=== PATIENT | male | born 1965 | race Caucasian/White ===

== ENCOUNTER 2017-11-06 16:35 | Inpatient (IN) | payer OTHER ==
[~2017-11-06] VITALS: Ht 172.7 cm; Wt 67.0 kg
[2017-11-06] MEDS ORDERED: LIDOCAINE HCL 1% PF 30 ML VIAL ONE ×2 (16:38→16:42)
[2017-11-06] MEDS ORDERED: ONDANSETRON HCL 4 MG/2 ML VIAL ONE (16:39)
[2017-11-06] MEDS ORDERED: HYDROmorphone HCL PF 2 MG/ML VIAL ONE (16:39)
[2017-11-06] MEDS ORDERED: MIDAZOLAM HCL 5 MG/ML VIAL (1 ML) ONE (16:41)
[2017-11-06 17:03] LABS: AUTOMATED NEUTROPHIL # 6.4 TH/MM3 (1.8-7.7); BASOPHIL # 0.1 TH/MM3 (0-0.2); BASOPHIL % 1.3 % (0.0-2.0); EOSINOPHIL # 0.3 TH/MM3 (0-0.4); EOSINOPHIL % 2.9 % (0.0-4.0); HEMATOCRIT 35.8 % (39.0-51.0); HEMOGLOBIN 12.4 GM/DL (13.0-17.0); LYMPHOCYTE # 2.8 TH/MM3 (1.0-4.8); MEAN CELL VOLUME 99.3 FL (80.0-100.0); MEAN CORPUSCULAR HEMOGLOBIN 34.5 PG (27.0-34.0); MEAN CORPUSCULAR HGB CONC 34.8 % (32.0-36.0); MONO % 7.7 % (0.0-8.0); MONOCYTE # 0.8 TH/MM3 (0-0.9); NEUT % 61.1 % (16.0-70.0); PLATELET COUNT 286 TH/MM3 (150-450); RED CELL DISTRIBUTION WIDTH 13.1 % (11.6-17.2); WHITE BLOOD COUNT 10.5 TH/MM3 (4.0-11.0)
[2017-11-06] MEDS ORDERED: DIPHTH/TETANUS/ACEL PERTUSSIS (BOOSTER) 0.5 ML VIAL/PFS IM ONE (17:04)
[2017-11-06] MEDS ORDERED: IOHEXOL 350 MG/ML 10 ML VIAL (for RAD DIAG) IVCONTRAST ONE (17:12)
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
[2017-11-06 17:26] LABS: INTERNATIONAL NORMALIZED RATIO 1.1 RATIO; PROTHROMBIN TIME - PATIENT 10.7 SEC (9.8-11.6)
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
--- NOTE | 2017-11-06 17:40 | RADRPT ---
EXAM DATE/TIME: 11/06/2017 16:27 [facility] COMPARISON: No previous studies available for comparison. INDICATIONS : Trauma alert, post left side chest tube. MEDICAL HISTORY : Unobtainable. SURGICAL HISTORY : Unobtainable. ENCOUNTER: Initial ACUITY: 1 day PAIN SCORE: Non-responsive. LOCATION: Bilateral chest FINDINGS: Single recheck demonstrates a left-sided chest tube. There is moderate subcutaneous emphysema. There is parenchymal contusion within the left lung. There are fractures evident involving multiple left-sided ribs. The chest tube is somewhat medial placement. CONCLUSION: 1. There is now achest tube in the left chest. There is parenchymal contusion in the left lung and temple bcutaneous emphysema along the left chest wall 2. Multiple left-sided rib fractures identified. Thang Victoria MD on November 06, 2017 at 17:36 Board Certified Radiologist. This report was verified electronically.
[2017-11-06 17:48] VITALS: O2SAT 96
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
[2017-11-06 18:00] VITALS: PULSE 72
[2017-11-06] MEDS ORDERED: MORPHINE SULFATE 30 MG/30 ML PCA IV SCH (18:15)
[2017-11-06] MEDS ORDERED: HYDROmorphone HCL PF 2 MG/ML VIAL IV PUSH ONE (18:15)
[2017-11-06] MEDS ORDERED: SODIUM CHLORIDE 0.9% FLUSH 10 ML FLUSH IV FLUSH PRN (18:15)
[2017-11-06] MEDS ORDERED: NALOXONE HCL 0.4 MG/ML AMP IV PUSH PRN ×2 (18:15)
[2017-11-06] MEDS ORDERED: Post-op Orders (for Pharmacy) XX ONE (18:15)
[2017-11-06] MEDS: SODIUM CHLOR 0.9% 1000 ML INJ 1,000 ML IV SCH (18:15)
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
--- NOTE | 2017-11-06 19:45 | PD.CONS ---
[facility] Service Critical Care Medicine Consult Requested By Primary Care Physician Unknown History of Present Illness 53-year-old male patient presents as a trauma alert. The patient he had been unloading a truck and 200 pounds of wood fell on him. In the emergency department he was complaining of severe chest pain on the left side, with diminished breath sounds in the left. He had GCS of 15. He started getting short of breath and blood pressure started to drop in the ambulance. The needle decompression was done on the left side with improvement in symptoms by ambulance crew. The chest tube was then placed for hemopneumothorax by trauma surgeon at the trauma bay. Review of Systems Constitutional: COMPLAINS OF: Diaphoretic episodes, DENIES: Fatigue, Fever, Weight gain, Weight loss, Chills, Dizziness, Change in appetite, Night Sweats Endocrine: DENIES: Heat/cold intolerance, Polydipsia, Polyuria, Polyphagia Eyes: DENIES: Blurred vision, Diplopia, Eye inflammation, Eye pain, Vision loss , Photosensitivity, Double Vision Ears, nose, mouth, throat: DENIES: Tinnitus, Hearing loss, Vertigo, Nasal discharge, Oral lesions, Throat pain, Hoarseness, Ear Pain, Running Nose, Epistaxis, Sinus Pain, Toothache, Odynophagia Respiratory: COMPLAINS OF: Shortness of breath, DENIES: Apneas, Cough, Snoring , Wheezing, Hemoptysis, Sputum production Cardiovascular: COMPLAINS OF: Chest pain, Dyspnea on Exertion, DENIES: Palpitations, Syncope, PND, Lower Extremity Edema, Orthopnea, Claudication Gastrointestinal: DENIES: Abdominal pain, Black stools, Bloody stools, Constipation, Diarrhea, Nausea, Vomiting, Difficulty Swallowing, Anorexia Genitourinary: DENIES: Sexual dysfunction, Urinary frequency, Urinary incontinence, Urgency, Hematuria, Dysuria, Nocturia, Penile Discharge, Testicular Pain, Testicular Swelling Musculoskeletal: DENIES: Joint pain, Muscle aches, Stiffness, Joint Swelling, Back pain, Neck pain Integumentary: DENIES: Abnormal pigmentation, Nail changes, Pruritus, Rash Hematologic/lymphatic: DENIES: Bruising, Lymphadenopathy Immunologic/allergic: DENIES: Eczema, Urticaria Neurologic: DENIES: Abnormal gait, Headache, Localized weakness, Paresthesias, Seizures, Speech Problems, Tremor, Poor Balance Psychiatric: DENIES: Anxiety, Confusion, Mood changes, Depression, Hallucinations, Agitation, Suicidal Ideation, Homicidal Ideation, Delusions Past Family Social History Allergies: Coded Allergies: No Known Allergies (Verified Allergy, Unknown, 11/06/17) Past Medical History Hypertension Past Surgical History No significant related past surgical history Reported Medications None available Active Ordered Medications Current Medications Medications (Trade) Dose Ordered Sig/Marium Route PRN Reason Start Time Stop Time Status Last Admin Dose Admin Sodium Chloride 1,000 ml @ 100 mls/hr Q10H IV 11/06/17 18:15 11/06/17 18:15 Sodium Chloride (NS Flush) 2 ml UNSCH PRN IV FLUSH FLUSH AFTER USING IV ACCESS 11/06/17 18:15 Sodium Chloride (NS Flush) 2 ml BID IV FLUSH 11/06/17 21:00 Ondansetron HCl (Zofran Inj) 4 mg Q6H PRN IV PUSH NAUSEA OR VOMITING 11/06/17 18:15 Famotidine (Pepcid) 20 mg BID PO 11/06/17 21:00 Docusate Sodium (Colace) 100 mg BID PO 11/06/17 21:00 Naloxone HCl (Narcan Inj) 0.4 mg UNSCH PRN IV PUSH SEE LABEL COMMENTS 11/06/17 18:15 Naloxone HCl (Narcan Inj) 0.4 mg UNSCH PRN IV PUSH RESPIRATORY RATE LESS THAN 10 11/06/17 18:15 Morphine Sulfate (Morphine 1 Mg/ ml HOTBED LEVER OPERATOR) 30 mg UNSCH IV 11/06/17 18:15 HOTBED LEVER OPERATOR Dosage Infused (Pha) 1 Q8HR .XX 11/06/17 22:00 Ketorolac Tromethamine (Toradol Inj) 15 mg Q6HR IV PUSH 11/06/17 20:00 Nicotine (Habitrol 14 Mg Patch.24 Hr) 1 patch DAILY T-DERMAL 11/06/17 20:00 Miscellaneous Information 1 DAILY T-DERMAL 11/07/17 09:00 Family History No family history significant of cancer Social History Denies alcohol or illicit drug abuse Physical Exam Vital Signs Vital Signs Date Time Temp Pulse Resp B/P (MAP) Pulse Ox O2 Delivery O2 Flow Rate FiO2 11/06/17 18:54 28 11/06/17 18:00 72 11/06/17 17:48 96 Nasal Cannula 3.00 Physical Exam GENERAL: Well-developed middle-age male patient currently and moderate distress , in mild respiratory distress. Decompression needle in place. Awake and alert. In backboard and c-collar. SKIN: Focused skin assessment warm/dry. HEAD: Atraumatic. Normocephalic. EYES: Pupils equal and round. No scleral icterus. No injection or drainage. ENT: No nasal bleeding or discharge. Mucous membranes pink and moist. NECK: Trachea midline. No JVD. C-collar in place. CARDIOVASCULAR: Regular rate and rhythm. No murmur appreciated. RESPIRATORY: Mild accessory muscle use. Bilateral coarse. breath sounds left chest wall needle in place.. Breath sounds equal bilaterally. GASTROINTESTINAL: Abdomen soft, non-tender, nondistended. Hepatic and splenic margins not palpable. MUSCULOSKELETAL: No obvious deformities. No clubbing. No cyanosis. No edema. NEUROLOGICAL: Awake and alert. No obvious cranial nerve deficits. Motor grossly within normal limits. Normal speech. Laboratory Laboratory Tests Test 11/06/17 16:40 White Blood Count 10.5 Red Blood Count 3.60 Hemoglobin 12.4 Bedside Hemoglobin 11.9 Hematocrit 35.8 Bedside Hematocrit 35.0 Mean Corpuscular Volume 99.3 Mean Corpuscular Hemoglobin 34.5 Mean Corpuscular Hemoglobin Concent 34.8 Red Cell Distribution Width 13.1 Platelet Count 286 Mean Platelet Volume 8.0 Neutrophils (%) (Auto) 61.1 Lymphocytes (%) (Auto) 27.0 Monocytes (%) (Auto) 7.7 Eosinophils (%) (Auto) 2.9 Basophils (%) (Auto) 1.3 Neutrophils # (Auto) 6.4 Lymphocytes # (Auto) 2.8 Monocytes # (Auto) 0.8 Eosinophils # (Auto) 0.3 Basophils # (Auto) 0.1 CBC Comment DIFF FINAL Differential Comment Prothrombin Time 10.7 Prothromb Time International Ratio 1.1 Activated Partial Thromboplast Time 21.2 Bedside Sodium 142 Bedside Potassium 3.3 Bedside Chloride 103 Bedside Blood Urea Nitrogen 17 Bedside Creatinine 1.2 Bedside Glucose 124 Result Diagram: 11/06/17 1640 Imaging Last 24 hours Impressions Pelvis X-Ray 11/06/17 1636 Signed Impressions: Service Date/Time: October 16:27 - CONCLUSION: 1. No definite fracture identified. The exam is somewhat limited as the upper pelvis is not visualized. Thang Victoria MD Head CT 11/06/17 1636 Signed Impressions: Service Date/Time: October 16:57 - CONCLUSION: 1. No acute intracranial abnormality is identified. Thang Victoria MD Chest X-Ray 11/06/17 1636 Signed Impressions: Service Date/Time: October 16:27 - CONCLUSION: 1. There are multiple left-sided rib fractures with pulmonary contusion. There is a small amount of subcutaneous emphysema. CT of the thorax would be of benefit for more definitive assessment. Thang Victoria MD Chest CT 11/06/17 1636 Signed Impressions: Service Date/Time: October 17:05 - CONCLUSION: 1. Numerous segmental lower left rib fractures with lung contusions and small left hemothorax. Dependent consolidation in both lungs. Small left pneumothorax with left chest tube. 2. Negative for traumatic aortic injury. Omar Douglas MD Cervical Spine CT 11/06/171635 Signed Impressions: Service Date/Time: October 16:57 - CONCLUSION: 1. Moderate degenerative change. No acute findings. Omar Douglas MD Abdomen/Pelvis CT 11/06/17 163 Signed Impressions: Service Date/Time: October 17:05 - CONCLUSION: 1. Numerous lower left rib fractures with pneumothorax, lung contusion, left hemothorax and dependent consolidation in the lungs. No acute traumatic injury identified within the abdomen and pelvis. Omar Douglas MD Chest X-Ray 11/06/17 0000 Signed Impressions: Service Date/Time: October 16:27 - CONCLUSION: 1. There is now achest tube in the left chest. There is parenchymal contusion in the left lung and subcutaneous emphysema along the left chest wall 2. Multiple left- sided rib fractures identified. Thang Victoria MD Septic Shock Reassessment Septic shock perfusion: reassessment completed Assessment and Plan Assessment and Plan Hemopneumothorax - Status post chest tube placement - Management per trauma surgeon - Monitor H&H Multiple rib fractures - Pain control - Incentive spirometer - Supportive care - Chest PT as tolerated Pulmonary contusion - Chest PT as tolerated - O2 via nasal cannula to keep sats above 92 DVT GI prophylaxis - Teds SCDs - Pharmacological DVT prophylaxis per trauma surgeon - Pepcid Critical Care: The total critical care time was 35 minutes. Time to perform other separately billable procedures was not included in the critical care time. Bear Serrano MD Nov 06, 2017 7:45 pm
[2017-11-06 20:00] VITALS: BP 125/72; PULSE 75; RESP 22; TEMP 98.5; O2SAT 97
[2017-11-06] MEDS ORDERED: KETOROLAC TROMETHAMINE 30 MG/ML (IVP) VIAL IV PUSH SCH (20:00)
[2017-11-06] MEDS: FAMOTIDINE 20 MG TAB PO SCH (21:02)
[2017-11-06] MEDS: SODIUM CHLORIDE 0.9% FLUSH 10 ML FLUSH IV FLUSH SCH (21:02)
[2017-11-06] MEDS: NICOTINE 14 MG/24 HR PATCH T-DERMAL SCH (21:02)
[2017-11-06] MEDS: DOCUSATE SODIUM 100 MG CAP PO SCH (21:02)
[2017-11-06 22:00] VITALS: PULSE 72
[2017-11-06 22:36] VITALS: O2SAT 100
[2017-11-06] MEDS: PCA - TOTAL MG MORPHINE DELIVERED PER SHIFT SCH (22:50)
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
[2017-11-06] MEDS ORDERED: METHOCARBAMOL 500 MG TAB PO PRN (23:00)
[2017-11-07] VITALS (18 sets, daily range): BP systolic 79–153; BP diastolic 46–88; PULSE 66–92; RESP 5–24; TEMP 97.7–99.1; O2SAT 95–100
[2017-11-07 01:09] LABS: HEMATOCRIT 32.4 % (39.0-51.0); HEMOGLOBIN 11.3 GM/DL (13.0-17.0)
[2017-11-07] MEDS: ONDANSETRON HCL 4 MG/2 ML VIAL IV PUSH PRN (01:35)
[2017-11-07 02:45] LABS: HEMATOCRIT 26.7 % (39.0-51.0); HEMOGLOBIN 9.3 GM/DL (13.0-17.0)
[2017-11-07] MEDS ORDERED: SODIUM CHLOR 0.9% 1000 ML INJ 1,000 ML IV SCH ×2 (02:45→11:05)
--- NOTE | 2017-11-07 03:26 | HHI.CCPN ---
Subjective Brief History Patient transferred to our institution as priority 2 trauma alert after a piece of wood fell on him while he was unloading a truck. Patient sustained massive injuries to the left chest He was resuscitated according trauma principles Final injuries Left hemopneumothorax Serial left rib fractures 5, 6, 7, 8, 9, 10 Respiratory failure Patient now being admitted to ICU for further care Left chest tube drainage decreased and no air leak is noted 24 Hour Review/Hospital Course 11/07/2017 Initially upon the admission patient was hemodynamically stable it was called around 2 AM when patient dropped systolic blood pressure to about 70 mmHg at which time about a liter of old blood port out of the chest tube as patient was being turned. Patient was immediately resuscitated with fluids and initially 1 unit of blood was ordered to be followed with a second Hemoglobin comes back around 9 g/dL however patient does appear somewhat pale to me and I believe he is slowly continuously bleeding into the left chest Patient's rib fractures of severe and it would not be uncommon for patient required thoracotomy and clean out of the chest On auscultation patient has decreased breath sounds on the left side consistent with a probably retained fresh pneumothorax and also contusion of the lung from the initial injury Repeat chest x-ray reveals partial opacification of the left chest Depending on how patient does in next few hours we will decide whether patient needs thoracotomy today or he can be safely watched and managed conservatively 11/07/2017 continuous At 7 AM it is noted that patient keeps pulling out about 150-200 cc/h of blood from the chest tube without stopping. He was transfused 2 units PRBC at hemoglobin of 9 with a repeat hemoglobin being 10 barely moved Decision is made now to take the patient to the operating room for continuous bleeding Patient underwent left thoracotomy and partial resection of the left lower lobe , resection of the ribs and drainage of hemothorax with control of bleeding Patient is now back in the ICU intubated ventilated Objective Vital Signs Date Time Temp Pulse Resp B/P (MAP) Pulse Ox O2 Delivery O2 Flow Rate FiO2 11/07/17 02:59 98.2 88 24 95/51 95 11/06/17 22:36 Nasal Cannula 4.00 Result Diagram: 11/07/17 0232 Imaging Last 24 hours Impressions Pelvis X-Ray 11/06/17 0856 Signed Impressions: Service Date/Time: October 16:27 - CONCLUSION: 1. No definite fracture identified. The exam is somewhat limited as the upper pelvis is not visualized. Thang Victoria MD Head CT 11/06/171635 Signed Impressions: Service Date/Time: October 16:57 - CONCLUSION: 1. No acute intracranial abnormality is identified. Thang Victoria MD Chest X-Ray 11/06/171635 Signed Impressions: Service Date/Time: October 16:27 - CONCLUSION: 1. There are multiple left-sided rib fractures with pulmonary contusion. There is a small amount of subcutaneous emphysema. CT of the thorax would be of benefit for more definitive assessment. Thang Victoria MD Chest CT 11/06/171635 Signed Impressions: Service Date/Time: October 17:05 - CONCLUSION: 1. Numerous segmental lower left rib fractures with lung contusions and small left hemothorax. Dependent consolidation in both lungs. Small left pneumothorax with left chest tube. 2. Negative for traumatic aortic injury. Omar Douglas MD Cervical Spine CT 11/06/171635 Signed Impressions: Service Date/Time: October 16:57 - CONCLUSION: 1. Moderate degenerative change. No acute findings. Omar Douglas MD Abdomen/Pelvis CT 11/06/171635 Signed Impressions: Service Date/Time: October 17:05 - CONCLUSION: 1. Numerous lower left rib fractures with pneumothorax, lung contusion, left hemothorax and dependent consolidation in the lungs. No acute traumatic injury identified within the abdomen and pelvis. 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 Patient sedated on propofol and fentanyl Hemodynamic/Cardiac Hemodynamically now stable Pulmonary/Respiratory Bilateral breath sounds left chest tubes anterior apical and posterior basal with drainage now serosanguineous On assist control ventilation tidal volume 550 cc, 5 PEEP and 50% FiO2 Bilateral pulmonary expansion and chest tubes in place This line was very beat up and the ribs shredded part of the left lower lobe so this patient will get worse before he gets better as far as the pulmonary function is concerned In addition patient is a severe chest wall contusion and fracture of the ribs which had to be trimmed off This was not something that could be plated considering that parts of the ribs are basically pulverized Abdomen/GI Nutrition Abdomen is soft no signs of trauma there Renal/I&O Preserved renal function Assessment and Plan Attestation Critical care time 65 minutes Burton Pratt MD Nov 07, 2017 03:26
--- NOTE | 2017-11-07 03:41 | RADRPT ---
EXAM DATE/TIME: 11/07/2017 03:06 [facility] COMPARISON: CHEST SINGLE AP, November 06, 2017, 16:27. INDICATIONS : Follow up trauma alert, pneumothorax. MEDICAL HISTORY : Unobtainable. SURGICAL HISTORY : Unobtainable. ENCOUNTER: Subsequent ACUITY: 2 days PAIN SCORE: 10/10 LOCATION: Left chest FINDINGS: A single view of the chest demonstrates worsening opacification of the left hemithorax. Left-sided th oracostomy tube is again identified. Probable small right-sided effusion with some blunting of the co stophrenic angles. Degenerative spurring of the dorsal spine. Stable deep tissue emphysematous change s about the left hemithorax. CONCLUSION: Worsening airspace opacification of the left hemithorax. Probable developing small right- sided e ffusion. Tylor Macias MD on November 07, 2017 at 3:38 Board Certified Radiologist. This report was verified electronically.
[2017-11-07 05:09] LABS: AUTOMATED NEUTROPHIL # 15.1 TH/MM3 (1.8-7.7); BASOPHIL # 0.1 TH/MM3 (0-0.2); BASOPHIL % 0.3 % (0.0-2.0); EOSINOPHIL % 0.2 % (0.0-4.0); HEMATOCRIT 31.7 % (39.0-51.0); HEMOGLOBIN 10.8 GM/DL (13.0-17.0); LYMPH % 6.2 % (9.0-44.0); LYMPHOCYTE # 1.1 TH/MM3 (1.0-4.8); MEAN CELL VOLUME 94.1 FL (80.0-100.0); MEAN CORPUSCULAR HEMOGLOBIN 32.1 PG (27.0-34.0); MEAN CORPUSCULAR HGB CONC 34.1 % (32.0-36.0); MEAN PLATELET VOLUME 8.3 FL (7.0-11.0); MONO % 7.7 % (0.0-8.0); MONOCYTE # 1.4 TH/MM3 (0-0.9); NEUT % 85.6 % (16.0-70.0); PLATELET COUNT 166 TH/MM3 (150-450); RED BLOOD COUNT 3.37 MIL/MM3 (4.50-5.90); RED CELL DISTRIBUTION WIDTH 17.3 % (11.6-17.2); WHITE BLOOD COUNT 17.6 TH/MM3 (4.0-11.0)
[2017-11-07 05:39] LABS: BICARBONATE 24.4 MEQ/L (21.0-32.0); CALCIUM 7.6 MG/DL (8.5-10.1); CREATININE 0.83 MG/DL (0.60-1.30)
[2017-11-07] MEDS: KETOROLAC TROMETHAMINE 30 MG/ML (IVP) VIAL IV PUSH SCH ×4 (06:14→23:32)
[2017-11-07] MEDS: PCA - TOTAL MG MORPHINE DELIVERED PER SHIFT SCH (06:45)
[2017-11-07] MEDS ORDERED: BUPIVACAINE HCL PF 0.25% 30 ML VIAL ONE (07:32)
[2017-11-07] MEDS ORDERED: GENTAMICIN SULFATE 80 MG/2 ML VIAL ONE (07:32)
[2017-11-07] MEDS ORDERED: VANCOMYCIN HCL 1000 MG VIAL ONE (07:33)
[2017-11-07] MEDS: SODIUM CHLOR 0.9% 1000 ML INJ 1,000 ML IV SCH ×3 (07:35→23:07)
[2017-11-07] MEDS ORDERED: HEPARIN SODIUM - SQ 10,000 UNITS/ML VIAL ONE (07:38)
[2017-11-07 07:52] LABS: INTERNATIONAL NORMALIZED RATIO 1.3 RATIO; PROTHROMBIN TIME - PATIENT 12.7 SEC (9.8-11.6)
[2017-11-07] MEDS ORDERED: ceFAZolin 2 GM PREMIX 50 ML ONE (08:43)
[2017-11-07] MEDS: SODIUM CHLORIDE 0.9% FLUSH 10 ML FLUSH IV FLUSH SCH ×3 (08:57→20:31)
[2017-11-07] MEDS: FAMOTIDINE 20 MG TAB PO SCH ×2 (09:00→20:31)
[2017-11-07] MEDS: DOCUSATE SODIUM 100 MG CAP PO SCH ×2 (09:00→20:31)
[2017-11-07] MEDS: REMOVE OLD PATCH T-DERMAL SCH (09:00)
[2017-11-07] MEDS ORDERED: INFLUENZA VIRUS VACCINE (QUADRIVALENT) 0.5 ML SYR IM ONE (10:00)
[2017-11-07] MEDS ORDERED: DO NOT ADM ANY ANTICOAGULANT DRUGS PRN (10:38)
[2017-11-07] MEDS ORDERED: PROPOFOL 500 MG/50 ML INJ 50 ML ONE (10:49)
[2017-11-07] MEDS ORDERED: MORPHINE SULFATE 4 MG/ML INJ ONE (11:06)
[2017-11-07] MEDS ORDERED: NALOXONE HCL 0.4 MG/ML AMP IV PUSH PRN (11:15)
[2017-11-07] MEDS ORDERED: SODIUM CHLORIDE 0.9% FLUSH 10 ML FLUSH IV FLUSH PRN (11:15)
[2017-11-07] MEDS ORDERED: PROPOFOL 1000 MG/100 ML INJ 100 ML IV PRN (11:15)
[2017-11-07] MEDS ORDERED: Post-op Orders (for Pharmacy) XX ONE (11:15)
[2017-11-07] MEDS ORDERED: fentaNYL DRIP 250 ML IV PRN (11:15)
[2017-11-07] MEDS: NICOTINE 14 MG/24 HR PATCH T-DERMAL SCH (11:58)
[2017-11-07] MEDS ORDERED: DEXAMETHASONE SOD PHOS 4 MG/ML VIAL IV ONE (12:00)
[2017-11-07] MEDS ORDERED: NORMOSOL R INJ 1,000 ML IV ONE (12:00)
[2017-11-07] MEDS ORDERED: PROPOFOL 200 MG/20 ML AMP IV ONE (12:00)
[2017-11-07] MEDS ORDERED: ROCURONIUM INJ 50 MG/5 ML SYRINGE IV PUSH ONE (12:00)
[2017-11-07] MEDS ORDERED: PHENYLEPH/NS 1000 MCG/10 ML SYR IV ONE (12:00)
[2017-11-07] MEDS ORDERED: NEOSTIGMINE 5 MG/5 ML SYRINGE IV PUSH ONE (12:00)
[2017-11-07] MEDS ORDERED: LIDOCAINE HCL 1% PF 5 ML SYRINGE OTHER ONE (12:00)
[2017-11-07] MEDS ORDERED: ONDANSETRON HCL 4 MG/2 ML VIAL IV ONE (12:00)
[2017-11-07] MEDS ORDERED: VECURONIUM BROMIDE 20 MG VIAL IV ONE (12:00)
[2017-11-07] MEDS ORDERED: GLYCOPYRROLATE 1 MG/5 ML SYRINGE IV PUSH ONE (12:00)
[2017-11-07] MEDS ORDERED: ePHEDrine/NS 25 MG/5 ML SYRINGE IV ONE (12:00)
[2017-11-07] MEDS ORDERED: STERILE WATER FOR INJECTION 20 ML VIAL IV ONE (12:00)
--- NOTE | 2017-11-07 12:14 | RADRPT ---
EXAM DATE/TIME: 11/07/2017 11:37 [facility] COMPARISON: CHEST SINGLE AP, November 07, 2017, 3:06. INDICATIONS : Post thoracotomy. MEDICAL HISTORY : Unobtainable. SURGICAL HISTORY : Unobtainable. ENCOUNTER: Subsequent ACUITY: 1 day PAIN SCORE: Non-responsive. LOCATION: Bilateral chest FINDINGS: Portable upright expiratory view of the chest demonstrates a normal-sized cardiac silhouette. Endotra cheal tube is present with distal tip approximately 4.4 cm from the ingris and NG tube courses beyond the GE junction. Multiple EKG lines overlie the patient. There are 2 large bore left chest tubes ove rlying the left hemithorax. There is improved aeration of the left lung with resolution of the pleura l based opacity. No pneumothorax is identified. There is left chest wall subcutaneous emphysema. Left chest wall skin jung are present. There is stable slight blunting of the right costophrenic sulcu s. CONCLUSION: 1. Resolution of the left pleural effusion with improved aeration of the left lung. 2 large bore left chest tubes are present and no pneumothorax is seen. 2. Stable displaced left rib fractures with left chest wall subcutaneous air. Jarred Torre MD on November 07, 2017 at 12:08 Board Certified Radiologist. This report was verified electronically.
[2017-11-07 12:24] LABS: HEMATOCRIT 31.4 % (39.0-51.0); HEMOGLOBIN 10.8 GM/DL (13.0-17.0)
--- NOTE | 2017-11-07 13:11 | HHI.CCPN ---
Subjective Remarks/Hospital Course 53-year-old male patient presents as a trauma alert. The patient he had been unloading a truck and 200 pounds of wood fell on him. In the emergency department he was complaining of severe chest pain on the left side, with diminished breath sounds in the left. He had GCS of 15. He started getting short of breath and blood pressure started to drop in the ambulance. The needle decompression was done on the left side with improvement in symptoms by ambulance crew. The chest tube was then placed for hemopneumothorax by trauma surgeon at the trauma bay. 11/07: Back from OR on mechanical ventilation. Hemodynamics acceptable following lung repair. Minimal drainage from chest tubes. CXR with tubes and lines in good psoition. Objective Vital Signs Date Time Temp Pulse Resp B/P (MAP) Pulse Ox O2 Delivery O2 Flow Rate FiO2 11/07/17 11:00 100 40 11/07/17 08:00 82 22 101/60 (74) 11/07/17 04:02 97.9 11/06/17 22:36 Nasal Cannula 4.00 Intake and Output 11/07/17 11/07/17 11/08/17 08:00 16:00 00:00 Intake Total 3665 ml 3400 ml Output Total 3000 ml 1400 ml Balance 665 ml 2000 ml Result Diagram: 11/07/17 1205 11/07/17 0426 Other Results Laboratory Tests Test 11/07/17 09:03 Blood Gas Puncture Site DRAWN IN OR Blood Gas Patient Temperature 98.6 Blood Gas HCO3 22 mmol/L (22-26) Blood Gas Base Excess -4.2 mmol/L (-2-2) Blood Gas Oxygen Saturation 95 % (90-100) Arterial Blood pH 7.24 (7.380-7.420) Arterial Blood Partial Pressure CO2 54 mmHg (38-42) Arterial Blood Partial Pressure O2 212 mmHg (61-120) Arterial Blood Oxygen Content 10.8 Vol % (12.0-20.0) Arterial Blood Carboxyhemoglobin 2.5 % (0-4) Arterial Blood Methemoglobin 1.4 % (0-2) Blood Gas Hemoglobin 7.6 G/DL (12.0-16.0) Oxygen Delivery Device VENTILATOR Blood Gas Ventilator Setting OR Blood Gas Inspired Oxygen 100 % Imaging Last 24 hours Impressions Pelvis X-Ray 11/06/17 3326 Signed Impressions: Service Date/Time: October 16:27 - CONCLUSION: 1. No definite fracture identified. The exam is somewhat limited as the upper pelvis is not visualized. Thang Victoria MD Head CT 11/06/17 163 Signed Impressions: Service Date/Time: October 16:57 - CONCLUSION: 1. No acute intracranial abnormality is identified. Thang Victoria MD Chest X-Ray 11/06/171635 Signed Impressions: Service Date/Time: October 16:27 - CONCLUSION: 1. There are multiple left-sided rib fractures with pulmonary contusion. There is a small amount of subcutaneous emphysema. CT of the thorax would be of benefit for more definitive assessment. Thang Victoria MD Chest CT 11/06/171635 Signed Impressions: Service Date/Time: October 17:05 - CONCLUSION: 1. Numerous segmental lower left rib fractures with lung contusions and small left hemothorax. Dependent consolidation in both lungs. Small left pneumothorax with left chest tube. 2. Negative for traumatic aortic injury. Omar Douglas MD Cervical Spine CT 11/06/176 Signed Impressions: Service Date/Time: October 16:57 - CONCLUSION: 1. Moderate degenerative change. No acute findings. Omar Douglas MD Abdomen/Pelvis CT 11/06/171635 Signed Impressions: Service Date/Time: October 17:05 - CONCLUSION: 1. Numerous lower left rib fractures with pneumothorax, lung contusion, left hemothorax and dependent consolidation in the lungs. No acute traumatic injury identified within the abdomen and pelvis. Omar Douglas MD Chest X-Ray 11/06/17 0000 Signed Impressions: Service Date/Time: October 16:27 - CONCLUSION: 1. There is now achest tube in the left chest. There is parenchymal contusion in the left lung and subcutaneous emphysema along the left chest wall 2. Multiple left- sided rib fractures identified. Thang Victoria MD Objective Remarks GENERAL: Well-developed middle-age male. Intubated, ventilated. SKIN: Focused skin assessment warm/dry. HEAD: Atraumatic. Normocephalic. EYES: Pupils equal and round. No scleral icterus. No injection or drainage. ENT: No nasal bleeding or discharge. Mucous membranes pink and moist. NECK: Trachea midline. Orally intubated. CARDIOVASCULAR: Regular rate and rhythm. No murmur appreciated. RESPIRATORY: Mild accessory muscle use. Bilateral coarse. breath sounds left chest wall needle in place. Breath sounds equal bilaterally. GASTROINTESTINAL: Abdomen soft, non-tender, nondistended. Quiet. MUSCULOSKELETAL: No obvious deformities. No clubbing. No cyanosis. No edema. NEUROLOGICAL: Moves 4 limbs. Opens eyes. On ventilator A/P Assessment and Plan Hemopneumothorax - Status post chest tube placement - Management per trauma surgeon - Monitor H&H - Left thoracotomy and partial lung resection 11/07 Multiple rib fractures - Pain control - Incentive spirometer after extubation - Supportive care - Chest PT as tolerated Pulmonary contusion - Chest PT as tolerated - PRVC mode DVT GI prophylaxis - Teds SCDs - Pharmacological DVT prophylaxis per trauma surgeon - Pepcid Overall impression: Patient is critically ill requiring emergency thoracotomy and lung resection for hemorrhage after receiving severe blunt chest trauma. Will keep peak airway pressures low, ventilate for at least 24 hours due to severe lung contusion. Critical care 43 mins Junior Quesada MD Nov 07, 2017 13:11
[2017-11-07] MEDS ORDERED: RASS Change Order XX ONE (13:45)
[2017-11-07] MEDS: PROPOFOL 1000 MG/100 ML INJ 100 ML IV PRN ×2 (13:50→20:31)
[2017-11-07] MEDS: fentaNYL DRIP 250 ML IV PRN (13:57)
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
[2017-11-07] MEDS: CHLORHEXIDINE 0.12% (ORAL KIT) 15 ML CUP MT SCH (20:30)
[2017-11-08] VITALS (15 sets, daily range): BP systolic 101–133; BP diastolic 47–69; PULSE 77–103; RESP 12–26; TEMP 98.4–98.7; O2SAT 93–100
[2017-11-08] MEDS: PROPOFOL 1000 MG/100 ML INJ 100 ML IV PRN (02:49)
--- NOTE | 2017-11-08 04:29 | RADRPT ---
EXAM DATE/TIME: 11/08/2017 03:33 [facility] COMPARISON: CHEST SINGLE AP, November 07, 2017, 11:37. INDICATIONS : Hemothorax. MEDICAL HISTORY : None. SURGICAL HISTORY : None. ENCOUNTER: Subsequent ACUITY: 3 days PAIN SCORE: 10/10 LOCATION: Left chest FINDINGS: A single view of the chest demonstrates persistent left-sided airspace disease and associated effusio n. Developing atelectasis in the right base. There are 2 left-sided thoracostomy tubes without pneumo thorax. Stable deep tissue emphysematous changes about the left hemithorax. Heart size is borderline. Endotracheal and nasogastric tubes are stable in position. Multiple left-sided rib fractures. CONCLUSION: 1. Stable position of life support tubes including 2 thoracostomy tubes on the left. No pneumothorax 2. Multiple left-sided rib fractures with persistent left airspace disease/effusion probably represen ting pulmonary parenchymal contusion with hemothorax. 3. Developing atelectatic changes medially in the right base. Tylor Macias MD on November 08, 2017 at 4:26 Board Certified Radiologist. This report was verified electronically.
[2017-11-08 04:57] LABS: AUTOMATED NEUTROPHIL # 9.9 TH/MM3 (1.8-7.7); BASOPHIL % 0.3 % (0.0-2.0); EOSINOPHIL % 0.2 % (0.0-4.0); HEMATOCRIT 28.2 % (39.0-51.0); HEMOGLOBIN 9.9 GM/DL (13.0-17.0); LYMPH % 9.4 % (9.0-44.0); LYMPHOCYTE # 1.2 TH/MM3 (1.0-4.8); MEAN CELL VOLUME 89.9 FL (80.0-100.0); MEAN CORPUSCULAR HEMOGLOBIN 31.6 PG (27.0-34.0); MEAN CORPUSCULAR HGB CONC 35.1 % (32.0-36.0); MONO % 9.9 % (0.0-8.0); MONOCYTE # 1.2 TH/MM3 (0-0.9); NEUT % 80.2 % (16.0-70.0); PLATELET COUNT 129 TH/MM3 (150-450); RED BLOOD COUNT 3.13 MIL/MM3 (4.50-5.90); RED CELL DISTRIBUTION WIDTH 18.4 % (11.6-17.2); WHITE BLOOD COUNT 12.4 TH/MM3 (4.0-11.0)
[2017-11-08] MEDS: KETOROLAC TROMETHAMINE 30 MG/ML (IVP) VIAL IV PUSH SCH ×4 (05:25→23:31)
[2017-11-08] MEDS: fentaNYL DRIP 250 ML IV PRN (05:25)
[2017-11-08 05:32] LABS: BICARBONATE 26.5 MEQ/L (21.0-32.0); CALCIUM 7.3 MG/DL (8.5-10.1); CREATININE 0.6 MG/DL (0.60-1.30)
[2017-11-08 06:05] LABS: CALCIUM-PROTEIN CORRECTED 8.6 MG/DL (8.5-10.1); TOTAL PROTEIN 4.8 GM/DL (6.4-8.2)
--- NOTE | 2017-11-08 08:04 | HHI.CCPN ---
Subjective Remarks/Hospital Course 53-year-old male patient presents as a trauma alert. The patient he had been unloading a truck and 200 pounds of wood fell on him. In the emergency department he was complaining of severe chest pain on the left side, with diminished breath sounds in the left. He had GCS of 15. He started getting short of breath and blood pressure started to drop in the ambulance. The needle decompression was done on the left side with improvement in symptoms by ambulance crew. The chest tube was then placed for hemopneumothorax by trauma surgeon at the trauma bay. 11/07: Back from OR on mechanical ventilation. Hemodynamics acceptable following lung repair. Minimal drainage from chest tubes. CXR with tubes and lines in good position. 11/08: Both lungs well expanded. Strong on SBTs 5/5 and gas exchange close to normal. Extubate now. Objective Vital Signs Date Time Temp Pulse Resp B/P (MAP) Pulse Ox O2 Delivery O2 Flow Rate FiO2 11/08/17 07:00 99 Mechanical Ventilator 40.00 11/08/17 06:00 77 11/08/17 04:15 40 11/08/17 04:00 98.7 19 101/57 (72) Intake and Output 11/08/17 11/08/17 11/09/17 08:00 16:00 00:00 Intake Total 377 ml Output Total 1450 ml Balance -1073 ml Result Diagram: 11/08/17 0438 11/08/17 0438 Other Results Laboratory Tests Test 11/07/17 09:03 11/08/17 05:03 Blood Gas Puncture Site DRAWN IN OR ART LINE Blood Gas Patient Temperature 98.6 98.6 Blood Gas HCO3 22 mmol/L (22-26) 24 mmol/L (22-26) Blood Gas Base Excess -4.2 mmol/L (-2-2) -1.3 mmol/L (-2-2) Blood Gas Oxygen Saturation 95 % (90-100) 96 % (90-100) Arterial Blood pH 7.24 (7.380-7.420) 7.33 (7.380-7.420) Arterial Blood Partial Pressure CO2 54 mmHg (38-42) 46 mmHg (38-42) Arterial Blood Partial Pressure O2 212 mmHg (61-120) 104 mmHg (61-120) Arterial Blood Oxygen Content 10.8 Vol % (12.0-20.0) 12.8 Vol % (12.0-20.0) Arterial Blood Carboxyhemoglobin 2.5 % (0-4) 1.3 % (0-4) Arterial Blood Methemoglobin 1.4 % (0-2) 0.9 % (0-2) Blood Gas Hemoglobin 7.6 G/DL (12.0-16.0) 9.3 G/DL (12.0-16.0) Oxygen Delivery Device VENTILATOR VENT Blood Gas Ventilator Setting OR SEE COMMENTS Blood Gas Inspired Oxygen 100 % 40 % Imaging Last 24 hours Impressions Pelvis X-Ray 11/06/171635 Signed Impressions: Service Date/Time: October 16:27 - CONCLUSION: 1. No definite fracture identified. The exam is somewhat limited as the upper pelvis is not visualized. Thang Victoria MD Head CT 11/06/171635 Signed Impressions: Service Date/Time: October 16:57 - CONCLUSION: 1. No acute intracranial abnormality is identified. Thang Victoria MD Chest X-Ray 11/06/171635 Signed Impressions: Service Date/Time: October 16:27 - CONCLUSION: 1. There are multiple left-sided rib fractures with pulmonary contusion. There is a small amount of subcutaneous emphysema. CT of the thorax would be of benefit for more definitive assessment. Thang Victoria MD Chest CT 11/06/171635 Signed Impressions: Service Date/Time: October 17:05 - CONCLUSION: 1. Numerous segmental lower left rib fractures with lung contusions and small left hemothorax. Dependent consolidation in both lungs. Small left pneumothorax with left chest tube. 2. Negative for traumatic aortic injury. Omar Douglas MD Cervical Spine CT 11/06/171635 Signed Impressions: Service Date/Time: October 16:57 - CONCLUSION: 1. Moderate degenerative change. No acute findings. Omar Douglas MD Abdomen/Pelvis CT 11/06/171635 Signed Impressions: Service Date/Time: October 17:05 - CONCLUSION: 1. Numerous lower left rib fractures with pneumothorax, lung contusion, left hemothorax and dependent consolidation in the lungs. No acute traumatic injury identified within the abdomen and pelvis. Omar Douglas MD Chest X-Ray 11/06/17 0000 Signed Impressions: Service Date/Time: October 16:27 - CONCLUSION: 1. There is now achest tube in the left chest. There is parenchymal contusion in the left lung and subcutaneous emphysema along the left chest wall 2. Multiple left- sided rib fractures identified. Thang Victoria MD Objective Remarks GENERAL: Well-developed middle-age male. Intubated, ventilated. SKIN: Focused skin assessment warm/dry. HEAD: Atraumatic. Normocephalic. EYES: Pupils equal and round. No scleral icterus. No injection or drainage. ENT: No nasal bleeding or discharge. Mucous membranes pink and moist. NECK: Trachea midline. Orally intubated. Supple. CARDIOVASCULAR: Regular rate and rhythm. No murmur appreciated. No JVD. RESPIRATORY: Clear right, mild coarse sounds left. Breath sounds equal bilaterally. GASTROINTESTINAL: Abdomen soft, non-tender, nondistended. BS active. MUSCULOSKELETAL: No obvious deformities. No clubbing. No cyanosis. No edema. NEUROLOGICAL: Moves 4 limbs. Opens eyes. On ventilator. Nods head, writes with pen. A/P Assessment and Plan Hemopneumothorax - Status post chest tube placement - Management per trauma surgeon - Monitor H&H - Left thoracotomy and partial lung resection 11/07 Multiple rib fractures - Pain control - Incentive spirometer after extubation - Supportive care - Chest PT as tolerated Pulmonary contusion - Chest PT as tolerated - PRVC mode -> CPAP/SBT DVT GI prophylaxis - Teds SCDs - Pharmacological DVT prophylaxis per trauma surgeon - Pepcid Overall impression: Stable respiratory status, extubate. Junior Quesada MD Nov 08, 2017 08:04
[2017-11-08] MEDS: CHLORHEXIDINE 0.12% (ORAL KIT) 15 ML CUP MT SCH ×2 (08:34→20:00)
[2017-11-08] MEDS: SODIUM CHLOR 0.9% 1000 ML INJ 1,000 ML IV SCH ×2 (09:14→20:15)
[2017-11-08] MEDS: FAMOTIDINE 20 MG TAB PO SCH ×2 (09:15→21:28)
[2017-11-08] MEDS: SODIUM CHLORIDE 0.9% FLUSH 10 ML FLUSH IV FLUSH SCH ×2 (09:15→21:00)
[2017-11-08] MEDS: DOCUSATE SODIUM 100 MG CAP PO SCH ×2 (09:15→21:28)
[2017-11-08] MEDS: REMOVE OLD PATCH T-DERMAL SCH (09:16)
[2017-11-08] MEDS: NICOTINE 14 MG/24 HR PATCH T-DERMAL SCH (09:16)
[2017-11-08] MEDS ORDERED: NALOXONE HCL 0.4 MG/ML AMP IV PUSH PRN (10:45)
[2017-11-08] MEDS: ENOXAPARIN SODIUM 30 MG/0.3 ML SYRINGE SQ SCH ×2 (11:13→23:31)
[2017-11-08] MEDS: LIDOCAINE HCL 5% PATCH T-DERMAL SCH (11:13)
[2017-11-08] MEDS: MAGNESIUM HYDROXIDE SUSP 30 ML CUP PO SCH ×2 (11:45→21:00)
[2017-11-08] MEDS: METHOCARBAMOL 500 MG TAB PO SCH ×2 (13:01→21:28)
[2017-11-08] MEDS: GABAPENTIN 300 MG CAP PO SCH ×2 (13:01→17:31)
[2017-11-08] MEDS: ONDANSETRON HCL 4 MG/2 ML VIAL IV PUSH PRN (13:01)
[2017-11-08] MEDS: HYDROmorphone HCL PCA 6 MG/30 ML IV SCH ×2 (13:09→22:41)
[2017-11-08] MEDS: PCA - TOTAL MG DILAUDID DELIVERED PER SHIFT OTHER SCH ×2 (14:00→22:00)
--- NOTE | 2017-11-08 15:28 | HHI.CCPN ---
Subjective Brief History Patient transferred to our institution as priority 2 trauma alert after a piece of wood fell on him while he was unloading a truck. Patient sustained massive injuries to the left chest He was resuscitated according trauma principles Final injuries Left hemopneumothorax Serial left rib fractures 5, 6, 7, 8, 9, 10 Respiratory failure Patient now being admitted to ICU for further care Left chest tube drainage decreased and no air leak is noted 24 Hour Review/Hospital Course 11/07/2017 Initially upon the admission patient was hemodynamically stable it was called around 2 AM when patient dropped systolic blood pressure to about 70 mmHg at which time about a liter of old blood port out of the chest tube as patient was being turned. Patient was immediately resuscitated with fluids and initially 1 unit of blood was ordered to be followed with a second Hemoglobin comes back around 9 g/dL however patient does appear somewhat pale to me and I believe he is slowly continuously bleeding into the left chest Patient's rib fractures of severe and it would not be uncommon for patient required thoracotomy and clean out of the chest On auscultation patient has decreased breath sounds on the left side consistent with a probably retained fresh pneumothorax and also contusion of the lung from the initial injury Repeat chest x-ray reveals partial opacification of the left chest Depending on how patient does in next few hours we will decide whether patient needs thoracotomy today or he can be safely watched and managed conservatively 11/07/2017 continuous At 7 AM it is noted that patient keeps pulling out about 150-200 cc/h of blood from the chest tube without stopping. He was transfused 2 units PRBC at hemoglobin of 9 with a repeat hemoglobin being 10 barely moved Decision is made now to take the patient to the operating room for continuous bleeding Patient underwent left thoracotomy and partial resection of the left lower lobe , resection of the ribs and drainage of hemothorax with control of bleeding Patient is now back in the ICU intubated ventilated 11/08 Patient has been extubated in the morning He is awake alert GCS is 15 He is hemodynamically normal He complains of severe incisional pain--he will be started on Dilaudid LITIGATION PARALEGAL-and IV fentanyl will be DC'd Objective Vital Signs Date Time Temp Pulse Resp B/P (MAP) Pulse Ox O2 Delivery O2 Flow Rate FiO2 11/08/17 14:00 19 11/08/17 14:00 94 11/08/17 12:00 98.7 121/67 (85) 96 Arterial Line 11/08/17 08:10 Nasal Cannula 4.00 11/08/17 04:15 40 Intake and Output 11/08/17 11/08/17 11/09/17 08:00 16:00 00:00 Intake Total 377 ml 150 ml Output Total 1450 ml Balance -1073 ml 150 ml Result Diagram: 11/08/17 0438 11/08/17 0438 Other Results Laboratory Tests Test 11/08/17 05:03 Blood Gas Puncture Site ART LINE Blood Gas Patient Temperature 98.6 Blood Gas HCO3 24 mmol/L (22-26) Blood Gas Base Excess -1.3 mmol/L (-2-2) Blood Gas Oxygen Saturation 96 % (90-100) Arterial Blood pH 7.33 (7.380-7.420) Arterial Blood Partial Pressure CO2 46 mmHg (38-42) Arterial Blood Partial Pressure O2 104 mmHg (61-120) Arterial Blood Oxygen Content 12.8 Vol % (12.0-20.0) Arterial Blood Carboxyhemoglobin 1.3 % (0-4) Arterial Blood Methemoglobin 0.9 % (0-2) Blood Gas Hemoglobin 9.3 G/DL (12.0-16.0) Oxygen Delivery Device VENT Blood Gas Ventilator Setting SEE COMMENTS Blood Gas Inspired Oxygen 40 % Imaging Last 24 hours Impressions Chest X-Ray 11/08/17 0600 Signed Impressions: Service Date/Time: Wednesday, November 08, 2017 03:33 - CONCLUSION: 1. Stable position of life support tubes including 2 thoracostomy tubes on the left. No pneumothorax 2. Multiple left-sided rib fractures with persistent left airspace disease/effusion probably representing pulmonary parenchymal contusion with hemothorax. 3. Developing atelectatic changes medially in the right base. Tylor Macias MD Exam [employer] gcs 15 Hemodynamic/Cardiac stable Pulmonary/Respiratory supp 02 Abdomen/GI Nutrition soft Urinary Catheter Assessment Urinary Catheter: Yes Assessment and Plan Plan DC [place] catheter DC A-line transfer in 24 hrs floor Shaylee Argueta MD Nov 08, 2017 15:28
[2017-11-08] MEDS: ACETAMINOPHEN 1000 MG/100 ML 100 ML IV PRN ×2 (17:37→23:41)
--- NOTE | 2017-11-08 18:14 | EKG ---
Date Performed: 11/07/2017 Time Performed: 13:26:58 PTAGE: 52 years EKG: Sinus rhythm NORMAL ECG NO PREVIOUS TRACING DOCTOR: Carlos Barry Interpretating Date/Time 11/08/2017 18:13:38
[2017-11-08] MEDS: REMOVE OLD LIDOCAINE PATCH T-DERMAL SCH (21:00)
[2017-11-09] VITALS (15 sets, daily range): BP systolic 118–144; BP diastolic 56–81; PULSE 88–115; RESP 16–33; TEMP 98.3–100.6; O2SAT 87–97
[2017-11-09] MEDS: ACETAMINOPHEN 1000 MG/100 ML 100 ML IV PRN ×3 (00:11→22:29)
--- NOTE | 2017-11-09 00:32 | RADRPT ---
EXAM DATE/TIME: 11/09/2017 00:03 [facility] COMPARISON: CHEST SINGLE AP, November 08, 2017, 3:33. INDICATIONS : Respiratory distress. Hemothorax. MEDICAL HISTORY : Hemothorax. SURGICAL HISTORY : None. ENCOUNTER: Subsequent ACUITY: 4 - 6 days PAIN SCORE: 5/10 LOCATION: Left chest FINDINGS: A single view of the chest demonstrates worsening bilateral airspace disease. 2 left-sided thoracosto my tubes are unchanged in position. No pneumothorax. Heart size is borderline prominent but stable. E mphysematous changes in the soft tissues about the left hemithorax, unchanged. CONCLUSION: Worsening bilateral pulmonary infiltrates. No pneumothorax. Tylor Macias MD on November 09, 2017 at 0:30 Board Certified Radiologist. This report was verified electronically.
[2017-11-09] MEDS: RESP: ALBUTEROL 2.5 MG/IPRATROPIUM 0.5 MG NEB (SCH) NEB ×7 (01:34→23:32)
[2017-11-09] MEDS: KETOROLAC TROMETHAMINE 30 MG/ML (IVP) VIAL IV PUSH SCH ×4 (05:37→23:45)
[2017-11-09] MEDS: METHOCARBAMOL 500 MG TAB PO SCH ×3 (05:37→21:25)
[2017-11-09] MEDS: PCA - TOTAL MG DILAUDID DELIVERED PER SHIFT OTHER SCH ×2 (05:39→16:30)
[2017-11-09 07:09] LABS: CALCIUM 7.6 MG/DL (8.5-10.1); CREATININE 0.55 MG/DL (0.60-1.30)
[2017-11-09 07:36] LABS: AUTOMATED NEUTROPHIL # 11.1 TH/MM3 (1.8-7.7); BASOPHIL # 0.1 TH/MM3 (0-0.2); BASOPHIL % 0.4 % (0.0-2.0); EOSINOPHIL # 0.2 TH/MM3 (0-0.4); EOSINOPHIL % 1.2 % (0.0-4.0); HEMATOCRIT 26.2 % (39.0-51.0); HEMOGLOBIN 8.9 GM/DL (13.0-17.0); LYMPH % 7.4 % (9.0-44.0); MEAN CELL VOLUME 91.4 FL (80.0-100.0); MEAN CORPUSCULAR HEMOGLOBIN 31.1 PG (27.0-34.0); MEAN PLATELET VOLUME 8.9 FL (7.0-11.0); MONO % 5.3 % (0.0-8.0); MONOCYTE # 0.7 TH/MM3 (0-0.9); NEUT % 85.7 % (16.0-70.0); PLATELET COUNT 83 TH/MM3 (150-450); RED BLOOD COUNT 2.87 MIL/MM3 (4.50-5.90); RED CELL DISTRIBUTION WIDTH 17.5 % (11.6-17.2)
[2017-11-09] MEDS: CHLORHEXIDINE 0.12% (ORAL KIT) 15 ML CUP MT SCH ×2 (08:00→20:00)
[2017-11-09] MEDS: MAGNESIUM HYDROXIDE SUSP 30 ML CUP PO SCH ×2 (09:00→21:25)
[2017-11-09] MEDS: SODIUM CHLORIDE 0.9% FLUSH 10 ML FLUSH IV FLUSH SCH ×2 (09:00→21:00)
--- NOTE | 2017-11-09 09:05 | RADRPT ---
EXAM DATE/TIME: 11/09/2017 08:19 [facility] COMPARISON: CHEST SINGLE AP, November 09, 2017, 0:03. INDICATIONS : Shortness of breath. Chest pain. MEDICAL HISTORY : None. SURGICAL HISTORY : None. ENCOUNTER: Subsequent ACUITY: 4 - 6 days PAIN SCORE: 10/10 LOCATION: Bilateral chest FINDINGS: Upper portable view of the chest and straight stable appearance of the apically directed left-sided c hest tube and basilar directed left-sided chest tube. Multiple mildly displaced left-sided rib fractu res. There is diffuse hazy airspace opacity involving the right upper lobe and within the left upper lobe likely contusion or hemorrhage. Heart size is grossly normal, however, there appears to be mild widening of the mediastinum. This appearance is mildly progressive as compared to the prior exam. CONCLUSION: Stable left-sided chest tubes stable to slightly improving lung exam. No visible pneumothorax. The ap parent widening of the mediastinum may be artifactual secondary to portable technique, however, in th e setting of trauma consider further evaluation with CT to evaluate for mediastinal hematoma. Ashia Matta MD on November 09, 2017 at 9:00 Board Certified Radiologist. This report was verified electronically.
[2017-11-09] MEDS: DOCUSATE SODIUM 100 MG CAP PO SCH ×2 (10:50→21:25)
[2017-11-09] MEDS: FAMOTIDINE 20 MG TAB PO SCH ×2 (10:50→21:25)
[2017-11-09] MEDS: GABAPENTIN 300 MG CAP PO SCH ×3 (10:50→18:22)
[2017-11-09] MEDS: NICOTINE 14 MG/24 HR PATCH T-DERMAL SCH (10:51)
[2017-11-09] MEDS: ENOXAPARIN SODIUM 30 MG/0.3 ML SYRINGE SQ SCH ×2 (10:52→22:29)
[2017-11-09] MEDS: LIDOCAINE HCL 5% PATCH T-DERMAL SCH (10:52)
[2017-11-09] MEDS: ONDANSETRON HCL 4 MG/2 ML VIAL IV PUSH PRN ×2 (13:13→18:23)
--- NOTE | 2017-11-09 13:31 | HHI.CCPN ---
Subjective Remarks/Hospital Course 53-year-old male patient presents as a trauma alert. The patient he had been unloading a truck and 200 pounds of wood fell on him. In the emergency department he was complaining of severe chest pain on the left side, with diminished breath sounds in the left. He had GCS of 15. He started getting short of breath and blood pressure started to drop in the ambulance. The needle decompression was done on the left side with improvement in symptoms by ambulance crew. The chest tube was then placed for hemopneumothorax by trauma surgeon at the trauma bay. 11/07: Back from OR on mechanical ventilation. Hemodynamics acceptable following lung repair. Minimal drainage from chest tubes. CXR with tubes and lines in good position. 11/08: Both lungs well expanded. Strong on SBTs 5/5 and gas exchange close to normal. Extubate now. 11/09: CXR much worse today with bilateral blossoming contusions and volume loss. Anticipate need for BiPAP or reintubation. Some is excess water, but most is injury. Objective Vital Signs Date Time Temp Pulse Resp B/P (MAP) Pulse Ox O2 Delivery O2 Flow Rate FiO2 11/09/17 11:50 22 11/09/17 10:15 91 Venturi Mask 6.00 50 11/09/17 06:00 96 11/09/17 04:00 98.7 141/81 (101) Intake and Output 11/09/17 11/09/17 11/10/17 08:00 16:00 00:00 Intake Total 1616 ml Output Total 1250 ml Balance 366 ml Result Diagram: 11/09/17 0523 11/09/17 0523 Imaging Last 24 hours Impressions Pelvis X-Ray 11/06/171635 Signed Impressions: Service Date/Time: October 16:27 - CONCLUSION: 1. No definite fracture identified. The exam is somewhat limited as the upper pelvis is not visualized. Thang Victoria MD Head CT 11/06/171635 Signed Impressions: Service Date/Time: October 16:57 - CONCLUSION: 1. No acute intracranial abnormality is identified. Thang Victoria MD Chest X-Ray 11/06/171635 Signed Impressions: Service Date/Time: October 16:27 - CONCLUSION: 1. There are multiple left-sided rib fractures with pulmonary contusion. There is a small amount of subcutaneous emphysema. CT of the thorax would be of benefit for more definitive assessment. Thang Victoria MD Chest CT 11/06/17 1636 Signed Impressions: Service Date/Time: October 17:05 - CONCLUSION: 1. Numerous segmental lower left rib fractures with lung contusions and small left hemothorax. Dependent consolidation in both lungs. Small left pneumothorax with left chest tube. 2. Negative for traumatic aortic injury. Omar Douglas MD Cervical Spine CT 11/06/17 1636 Signed Impressions: Service Date/Time: October 16:57 - CONCLUSION: 1. Moderate degenerative change. No acute findings. Omar Douglas MD Abdomen/Pelvis CT 11/06/17 1636 Signed Impressions: Service Date/Time: October 17:05 - CONCLUSION: 1. Numerous lower left rib fractures with pneumothorax, lung contusion, left hemothorax and dependent consolidation in the lungs. No acute traumatic injury identified within the abdomen and pelvis. Omar Douglas MD Chest X-Ray 11/06/17 0000 Signed Impressions: Service Date/Time: October 16:27 - CONCLUSION: 1. There is now achest tube in the left chest. There is parenchymal contusion in the left lung and subcutaneous emphysema along the left chest wall 2. Multiple left- sided rib fractures identified. Thang Victoria MD Objective Remarks GENERAL: Well-developed middle-age male. Intubated, ventilated. SKIN: Focused skin assessment warm/dry. HEAD: Atraumatic. Normocephalic. EYES: Pupils equal and round. No scleral icterus. No injection or drainage. ENT: No nasal bleeding or discharge. Mucous membranes pink and moist. NECK: Trachea midline. Supple. Airway widely patent. CARDIOVASCULAR: Regular rate and rhythm. No murmur appreciated. No JVD. RESPIRATORY: Bilateral coarse breath sounds left. Labored pattern. GASTROINTESTINAL: Abdomen soft, non-tender, nondistended. BS active. MUSCULOSKELETAL: No obvious deformities. No clubbing. No cyanosis. No edema. NEUROLOGICAL: O X 3, alert. Moves 4 limbs. A/P Assessment and Plan Hemopneumothorax - Status post chest tube placement - Management per trauma surgeon - Monitor H&H - Left thoracotomy and partial lung resection 11/07 Multiple rib fractures - Pain control - Incentive spirometer after extubation - Supportive care - Chest PT as tolerated Pulmonary contusion - Chest PT as tolerated - PRVC mode -> CPAP/SBT - Extubated 24 hours ago. - CXR with worsening contusions. DVT GI prophylaxis - Teds SCDs - Pharmacological DVT prophylaxis per trauma surgeon - Pepcid Overall impression: Volume loss and worsening contusions predict he will need ventilatory assistance, either BiPAP or intubation. Junior Quesada MD Nov 09, 2017 13:31
[2017-11-09] MEDS: SODIUM CHLOR 0.9% 1000 ML INJ 1,000 ML IV SCH ×2 (14:00→19:36)
[2017-11-09] MEDS ORDERED: FUROSEMIDE 40 MG/4 ML VIAL IV PUSH ONE (14:15)
[2017-11-09] MEDS: HYDROmorphone HCL PCA 6 MG/30 ML IV SCH (14:36)
--- NOTE | 2017-11-09 18:59 | HHI.CCPN ---
Subjective Brief History Patient transferred to our institution as priority 2 trauma alert after a piece of wood fell on him while he was unloading a truck. Patient sustained massive injuries to the left chest He was resuscitated according trauma principles Final injuries Left hemopneumothorax Serial left rib fractures 5, 6, 7, 8, 9, 10 Respiratory failure Patient now being admitted to ICU for further care Left chest tube drainage decreased and no air leak is noted 24 Hour Review/Hospital Course 11/07/2017 Initially upon the admission patient was hemodynamically stable it was called around 2 AM when patient dropped systolic blood pressure to about 70 mmHg at which time about a liter of old blood port out of the chest tube as patient was being turned. Patient was immediately resuscitated with fluids and initially 1 unit of blood was ordered to be followed with a second Hemoglobin comes back around 9 g/dL however patient does appear somewhat pale to me and I believe he is slowly continuously bleeding into the left chest Patient's rib fractures of severe and it would not be uncommon for patient required thoracotomy and clean out of the chest On auscultation patient has decreased breath sounds on the left side consistent with a probably retained fresh pneumothorax and also contusion of the lung from the initial injury Repeat chest x-ray reveals partial opacification of the left chest Depending on how patient does in next few hours we will decide whether patient needs thoracotomy today or he can be safely watched and managed conservatively 11/07/2017 continuous At 7 AM it is noted that patient keeps pulling out about 150-200 cc/h of blood from the chest tube without stopping. He was transfused 2 units PRBC at hemoglobin of 9 with a repeat hemoglobin being 10 barely moved Decision is made now to take the patient to the operating room for continuous bleeding Patient underwent left thoracotomy and partial resection of the left lower lobe , resection of the ribs and drainage of hemothorax with control of bleeding Patient is now back in the ICU intubated ventilated 11/08 Patient has been extubated in the morning He is awake alert GCS is 15 He is hemodynamically normal He complains of severe incisional pain--he will be started on Dilaudid TIMBER INCISOR OPERATOR-and IV fentanyl will be DC'd 11/09/2017 PTD: 3 Patient is lying in bed. On a partial rebreather - we will transition to high flow O2. Patient remains extremely painful. Discussed with patient the importance of getting out of bed. Objective Vital Signs Date Time Temp Pulse Resp B/P (MAP) Pulse Ox O2 Delivery O2 Flow Rate FiO2 11/09/17 16:30 22 11/09/17 13:00 97 High Flow Nasal Cannula 40.00 70 11/09/17 06:00 96 11/09/17 04:00 98.7 141/81 (101) Intake and Output 11/09/17 11/09/17 11/10/17 08:00 16:00 00:00 Intake Total 1616 ml Output Total 1250 ml Balance 366 ml Result Diagram: 11/09/1752211/09/17522 Imaging Last 24 hours Impressions Chest X-Ray 11/09/17 06 Signed Impressions: Service Date/Time: Thursday, November 09, 2017 08:19 - CONCLUSION: Stable left-sided chest tubes stable to slightly improving lung exam. No visible pneumothorax. The apparent widening of the mediastinum may be artifactual secondary to portable technique, however, in the setting of trauma consider further evaluation with CT to evaluate for mediastinal hematoma. Ashia Matta MD Objective Remarks GENERAL: This is a 52-year-old male lying in bed. No distress noted. SKIN: Warm and dry. Left lateral thoracotomy incision site noted. HEAD: Atraumatic. Normocephalic. EYES: PERRLA ENT: No nasal bleeding or discharge. Mucous membranes pink and moist. NECK: Trachea midline. No JVD. CARDIOVASCULAR: Regular rate and rhythm. RESPIRATORY: Partial rebreather in am - transitioned to high flow O2 No accessory muscle use. Lungs are coarse to auscultation. Breath sounds equal bilaterally. No distress or dyspnea. Left lateral chest tube 2 to Pleur-evac drainage system to 20 cm suction. Dressing CDI GASTROINTESTINAL: BS + x 4 quads. Abdomen soft, non-tender, nondistended. MUSCULOSKELETAL: Extremities without cyanosis, or edema. + peripheral pulses x 4 extremities. Warm with good capillary refill and sensation. MAEW. NEUROLOGICAL: Awake and alert. Normal speech and pattern. 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 No LOC. GCS 15. Needle decompression in the field. INJURIES: LEFT rib fxs (FLAIL) LEFT SALVADOR/PTX LEFT lung contusion ? aspiration PMHx: Procedures: 11/06: L CT placement 11/07 LEFT thoracotomy and partial resection of the left lower lobe, resection of the ribs and drainage of hemothorax with control of bleeding, chest tube placement Consults: CCM. Case management. Diet: Regular diet. Tolerating po diet. Encourage good po intake with each meal. Pulmonary: Encourage good pulmonary toileting. IS and acapella at bedside and pt encouraged to use. Rationale for use explained to patient, and verbalized understanding. EZ pap and duonebs. Chest x-ray today with worsening bilateral contusions. Follow-up chest x-ray in a.m. Patient is on a partial rebreather this a.m. during rounds - transitioned to high flow O2. Encourage aggressive pulmonary toileting and ambulating OOB to a recliner chair. May need to progress to BiPAP. Left lateral chest tube 2 to Pleur-evac drainage system to 20 cm suction. [address]ressing CDI. CT output = 750 ml / 24 hrs. Daily chest tube dressing changes. May leave thoracotomy incision site open to air. H&H = 8.9/26.2. Monitor closely. Monitor patient for signs and symptoms of bleeding. Follow-up labs in the morning for continued evaluation. PAIN Management: Maintain Dilaudid TIMBER INCISOR OPERATOR. OFIRMEV. Robaxin 500 mg q8h. Neurontin 300 TID. LIdoderm patch. Activity: OOB. PT ordered GI prophylaxis: Pepcid 20 mg BID po Bowel regimen: Colace and MOM. LBM: 0 DVT prophylaxis: Mechanical VTE with SCDs. Chemical management with Lovenox 30 mg BID SQ. DC Planning: Case management consulted for assistance with final discharge disposition. Emotional support provided to patient and family at bedside and plan of care discussed. Discussed with RN at bedside. Discussed pt condition and plan of care with collaborating trauma surgeon. Patient is currently being managed in the ICU The trauma team will round each day, and evaluate plan of care on a daily basis. Radha Norris Nov 09, 2017 18:59
[2017-11-09] MEDS: REMOVE OLD LIDOCAINE PATCH T-DERMAL SCH (21:00)
[2017-11-10] VITALS (20 sets, daily range): BP systolic 101–144; BP diastolic 56–79; PULSE 92–112; RESP 18–24; TEMP 98.3–99.6; O2SAT 90–100
[2017-11-10] MEDS: RESP: ALBUTEROL 2.5 MG/IPRATROPIUM 0.5 MG NEB (SCH) NEB ×6 (03:02→23:40)
--- NOTE | 2017-11-10 04:54 | RADRPT ---
EXAM DATE/TIME: 11/10/2017 03:06 [facility] COMPARISON: CHEST SINGLE AP, November 09, 2017, 8:19. INDICATIONS : Short of breath. MEDICAL HISTORY : None. SURGICAL HISTORY : None. ENCOUNTER: Subsequent ACUITY: 1 week PAIN SCORE: 0/10 LOCATION: Bilateral chest FINDINGS: 2 left chest drainage tube is stable in position. Persistent infiltrates the lateral left mid and lo wer lung and in the lateral right upper lung. No pneumothorax seen. Multiple displaced left rib fra ctures. CONCLUSION: Stable bilateral infiltrates. No pneumothorax seen. The Piter Peters MD on November 10, 2017 at 4:51 Board Certified Radiologist. This report was verified electronically.
[2017-11-10] MEDS: KETOROLAC TROMETHAMINE 30 MG/ML (IVP) VIAL IV PUSH SCH ×4 (05:19→23:33)
[2017-11-10] MEDS: METHOCARBAMOL 500 MG TAB PO SCH ×3 (05:19→21:59)
[2017-11-10 05:55] LABS: AUTOMATED NEUTROPHIL # 9.7 TH/MM3 (1.8-7.7); BASOPHIL % 0.4 % (0.0-2.0); EOSINOPHIL # 0.2 TH/MM3 (0-0.4); EOSINOPHIL % 1.5 % (0.0-4.0); HEMOGLOBIN 9.1 GM/DL (13.0-17.0); LYMPH % 4.3 % (9.0-44.0); LYMPHOCYTE # 0.5 TH/MM3 (1.0-4.8); MEAN CELL VOLUME 90.5 FL (80.0-100.0); MEAN CORPUSCULAR HEMOGLOBIN 31.5 PG (27.0-34.0); MEAN CORPUSCULAR HGB CONC 34.9 % (32.0-36.0); MEAN PLATELET VOLUME 7.8 FL (7.0-11.0); MONO % 8.2 % (0.0-8.0); MONOCYTE # 0.9 TH/MM3 (0-0.9); NEUT % 85.6 % (16.0-70.0); PLATELET COUNT 147 TH/MM3 (150-450); RED BLOOD COUNT 2.87 MIL/MM3 (4.50-5.90); RED CELL DISTRIBUTION WIDTH 16.8 % (11.6-17.2); WHITE BLOOD COUNT 11.4 TH/MM3 (4.0-11.0)
[2017-11-10] MEDS: PCA - TOTAL MG DILAUDID DELIVERED PER SHIFT OTHER SCH (06:00)
[2017-11-10] MEDS: SODIUM CHLOR 0.9% 1000 ML INJ 1,000 ML IV SCH ×2 (06:15→07:40)
[2017-11-10] MEDS: CHLORHEXIDINE 0.12% (ORAL KIT) 15 ML CUP MT SCH (07:23)
[2017-11-10 07:36] LABS: BICARBONATE 31.9 MEQ/L (21.0-32.0); CALCIUM 8.4 MG/DL (8.5-10.1); CREATININE 0.68 MG/DL (0.60-1.30)
[2017-11-10] MEDS: MAGNESIUM HYDROXIDE SUSP 30 ML CUP PO SCH ×3 (09:00→20:32)
[2017-11-10] MEDS: SODIUM CHLORIDE 0.9% FLUSH 10 ML FLUSH IV FLUSH SCH ×2 (09:00→20:32)
[2017-11-10] MEDS: FAMOTIDINE 20 MG TAB PO SCH ×2 (09:22→20:32)
[2017-11-10] MEDS: GABAPENTIN 300 MG CAP PO SCH ×3 (09:22→18:02)
[2017-11-10] MEDS: ACETAMINOPHEN 1000 MG/100 ML 100 ML IV PRN (09:22)
[2017-11-10] MEDS: LIDOCAINE HCL 5% PATCH T-DERMAL SCH (09:22)
[2017-11-10] MEDS: NICOTINE 14 MG/24 HR PATCH T-DERMAL SCH (09:22)
[2017-11-10] MEDS: DOCUSATE SODIUM 100 MG CAP PO SCH ×2 (09:23→20:32)
--- NOTE | 2017-11-10 10:07 | HHI.CCPN ---
Subjective Remarks/Hospital Course 53-year-old male patient presents as a trauma alert. The patient he had been unloading a truck and 200 pounds of wood fell on him. In the emergency department he was complaining of severe chest pain on the left side, with diminished breath sounds in the left. He had GCS of 15. He started getting short of breath and blood pressure started to drop in the ambulance. The needle decompression was done on the left side with improvement in symptoms by ambulance crew. The chest tube was then placed for hemopneumothorax by trauma surgeon at the trauma bay. 11/07: Back from OR on mechanical ventilation. Hemodynamics acceptable following lung repair. Minimal drainage from chest tubes. CXR with tubes and lines in good position. 11/08: Both lungs well expanded. Strong on SBTs 5/5 and gas exchange close to normal. Extubate now. 11/09: CXR much worse today with bilateral blossoming contusions and volume loss. Anticipate need for BiPAP or reintubation. Some is excess water, but most is injury. 11/10: Minimal clearing of contusions. Probably needs intermittent BiPAP for rest. May need intubation eventually. Objective Vital Signs Date Time Temp Pulse Resp B/P (MAP) Pulse Ox O2 Delivery O2 Flow Rate FiO2 11/10/17 08:46 92 High Flow Nasal Cannula 30.00 90 11/10/17 08:00 97 11/10/17 08:00 98.4 18 119/69 (86) Intake and Output 11/10/17 11/10/17 11/11/17 08:00 16:00 00:00 Output Total 1200 ml Balance -1200 ml Result Diagram: 11/10/17 0521 11/10/17 0521 Imaging Last 24 hours Impressions Pelvis X-Ray 11/06/171635 Signed Impressions: Service Date/Time: October 16:27 - CONCLUSION: 1. No definite fracture identified. The exam is somewhat limited as the upper pelvis is not visualized. Thang Victoria MD Head CT 11/06/171635 Signed Impressions: Service Date/Time: October 16:57 - CONCLUSION: 1. No acute intracranial abnormality is identified. Thang Victoria MD Chest X-Ray 11/06/171635 Signed Impressions: Service Date/Time: October 16:27 - CONCLUSION: 1. There are multiple left-sided rib fractures with pulmonary contusion. There is a small amount of subcutaneous emphysema. CT of the thorax would be of benefit for more definitive assessment. Thang Victoria MD Chest CT 11/06/17 1636 Signed Impressions: Service Date/Time: October 17:05 - CONCLUSION: 1. Numerous segmental lower left rib fractures with lung contusions and small left hemothorax. Dependent consolidation in both lungs. Small left pneumothorax with left chest tube. 2. Negative for traumatic aortic injury. Omar Douglas MD Cervical Spine CT 11/06/17 1636 Signed Impressions: Service Date/Time: October 16:57 - CONCLUSION: 1. Moderate degenerative change. No acute findings. Omar Douglas MD Abdomen/Pelvis CT 11/06/17 1636 Signed Impressions: Service Date/Time: October 17:05 - CONCLUSION: 1. Numerous lower left rib fractures with pneumothorax, lung contusion, left hemothorax and dependent consolidation in the lungs. No acute traumatic injury identified within the abdomen and pelvis. Omar Douglas MD Chest X-Ray 11/06/17 0000 Signed Impressions: Service Date/Time: October 16:27 - CONCLUSION: 1. There is now achest tube in the left chest. There is parenchymal contusion in the left lung and subcutaneous emphysema along the left chest wall 2. Multiple left- sided rib fractures identified. Thang Victoria MD Objective Remarks GENERAL: Well-developed middle-age male. Intubated, ventilated. SKIN: Focused skin assessment warm/dry. HEAD: Atraumatic. Normocephalic. EYES: Pupils equal and round. No scleral icterus. No injection or drainage. ENT: No nasal bleeding or discharge. Mucous membranes pink and moist. NECK: Trachea midline. Supple. Airway widely patent. CARDIOVASCULAR: Regular rate and rhythm. No murmur appreciated. No JVD. RESPIRATORY: Bilateral coarse breath sounds left. Few rhonchi right. Labored pattern persists. GASTROINTESTINAL: Abdomen soft, non-tender, nondistended. BS active. MUSCULOSKELETAL: No obvious deformities. No clubbing. No cyanosis. No edema. NEUROLOGICAL: O X 3, alert. Moves 4 limbs. A/P Assessment and Plan Hemopneumothorax - Status post chest tube placement - Management per trauma surgeon - Monitor H&H - Left thoracotomy and partial lung resection 11/07 Multiple rib fractures - Pain control - Incentive spirometer after extubation - Supportive care - Chest PT as tolerated - IS hourly Pulmonary contusion - Chest PT as tolerated - PRVC mode -> CPAP/SBT - Extubated 24 hours ago. - CXR with worsening contusions. DVT GI prophylaxis - Teds SCDs - Pharmacological DVT prophylaxis per trauma surgeon - Pepcid Overall impression: Is he labored because of rib pain or lung function? Volume loss and worsening contusions predict he will need ventilatory assistance, either BiPAP or possibly intubation. Junior Quesada MD Nov 10, 2017 10:07
[2017-11-10] MEDS ORDERED: MORPHINE SULFATE 2 MG/ML INJ IV PUSH PRN (11:15)
[2017-11-10] MEDS: fentaNYL 50 MCG/HR PATCH T-DERMAL SCH (11:17)
[2017-11-10] MEDS: ENOXAPARIN SODIUM 30 MG/0.3 ML SYRINGE SQ SCH ×2 (11:17→21:59)
--- NOTE | 2017-11-10 17:58 | HHI.CCPN ---
Subjective Brief History Patient transferred to our institution as priority 2 trauma alert after a piece of wood fell on him while he was unloading a truck. Patient sustained massive injuries to the left chest He was resuscitated according trauma principles Final injuries Left hemopneumothorax Serial left rib fractures 5, 6, 7, 8, 9, 10 Respiratory failure Patient now being admitted to ICU for further care Left chest tube drainage decreased and no air leak is noted 24 Hour Review/Hospital Course 11/07/2017 Initially upon the admission patient was hemodynamically stable it was called around 2 AM when patient dropped systolic blood pressure to about 70 mmHg at which time about a liter of old blood port out of the chest tube as patient was being turned. Patient was immediately resuscitated with fluids and initially 1 unit of blood was ordered to be followed with a second Hemoglobin comes back around 9 g/dL however patient does appear somewhat pale to me and I believe he is slowly continuously bleeding into the left chest Patient's rib fractures of severe and it would not be uncommon for patient required thoracotomy and clean out of the chest On auscultation patient has decreased breath sounds on the left side consistent with a probably retained fresh pneumothorax and also contusion of the lung from the initial injury Repeat chest x-ray reveals partial opacification of the left chest Depending on how patient does in next few hours we will decide whether patient needs thoracotomy today or he can be safely watched and managed conservatively 11/07/2017 continuous At 7 AM it is noted that patient keeps pulling out about 150-200 cc/h of blood from the chest tube without stopping. He was transfused 2 units PRBC at hemoglobin of 9 with a repeat hemoglobin being 10 barely moved Decision is made now to take the patient to the operating room for continuous bleeding Patient underwent left thoracotomy and partial resection of the left lower lobe , resection of the ribs and drainage of hemothorax with control of bleeding Patient is now back in the ICU intubated ventilated 11/08 Patient has been extubated in the morning He is awake alert GCS is 15 He is hemodynamically normal He complains of severe incisional pain--he will be started on Dilaudid GENERAL FARMER-and IV fentanyl will be DC'd 11/09/2017 PTD: 3 Patient is lying in bed. On a partial rebreather - we will transition to high flow O2. Patient remains extremely painful. Discussed with patient the importance of getting out of bed. 11/10/2017 Patient awake alert and oriented Out of bed Bilateral breath sounds decreased over the both lung valles left more than right considering the recent surgery Chest tube drainage is serosanguineous patient has no air leak On the chest x-ray both lungs display some degree of ARDS and of course contusion on the left side with area of resection Patient's respiratory status somewhat precarious in the face of fractures combined with severe lung injury He is alternating between high flow oxygen at about 40 L/min and BiPAP mask There is still some chance the patient might need to be intubated but I hope he will go through this and gradually improve We will gradually wean down the high flow oxygen mobilized the patient encouraged deep breathing coughing and such and he should do okay Objective Vital Signs Date Time Temp Pulse Resp B/P (MAP) Pulse Ox O2 Delivery O2 Flow Rate FiO2 11/10/17 16:00 111 11/10/17 16:00 98.8 21 144/79 (100) 90 11/10/17 14:42 40 11/10/17 12:25 High Flow Nasal Cannula 30.00 Intake and Output 11/10/17 11/10/17 11/11/17 08:00 16:00 00:00 Intake Total 100 ml Output Total 1200 ml Balance -1200 ml 100 ml Result Diagram: 11/10/17 0521 11/10/17 0521 Imaging Last 24 hours Impressions Chest X-Ray 11/10/17 0600 Signed Impressions: Service Date/Time: Friday, November 10, 2017 03:06 - CONCLUSION: Stable bilateral infiltrates. No pneumothorax seen. 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 No LOC. GCS 15. Needle decompression in the field. INJURIES: LEFT rib fxs (FLAIL) LEFT SALVADOR/PTX LEFT lung contusion ? aspiration PMHx: Procedures: 11/06: L CT placement 11/07 LEFT thoracotomy and partial resection of the left lower lobe, resection of the ribs and drainage of hemothorax with control of bleeding, chest tube placement Consults: CCM. Case management. Diet: Regular diet. Tolerating po diet. Encourage good po intake with each meal. Pulmonary: Encourage good pulmonary toileting. IS and acapella at bedside and pt encouraged to use. Rationale for use explained to patient, and verbalized understanding. EZ pap and duonebs. Chest x-ray today with worsening bilateral contusions. Follow-up chest x-ray in a.m. Patient is on a partial rebreather this a.m. during rounds - transitioned to high flow O2. Encourage aggressive pulmonary toileting and ambulating OOB to a recliner chair. May need to progress to BiPAP. Left lateral chest tube 2 to Pleur-evac drainage system to 20 cm suction. Dressing CDI. CT output = 750 ml / 24 hrs. Daily chest tube dressing changes. May leave thoracotomy incision site open to air. H&H = 8.9/26.2. Monitor closely. Monitor patient for signs and symptoms of bleeding. Follow-up labs in the morning for continued evaluation. PAIN Management: Maintain Dilaudid GENERAL FARMER. OFIRMEV. Robaxin 500 mg q8h. Neurontin 300 TID. LIdoderm patch. Activity: OOB. PT ordered GI prophylaxis: Pepcid 20 mg BID po Bowel regimen: Colace and MOM. LBM: 0 DVT prophylaxis: Mechanical VTE with SCDs. Chemical management with Lovenox 30 mg BID SQ. DC Planning: Case management consulted for assistance with final discharge disposition. Emotional support provided to patient and family at bedside and plan of care discussed. Discussed with RN at bedside. Discussed pt condition and plan of care with collaborating trauma surgeon. Patient is currently being managed in the ICU The trauma team will round each day, and evaluate plan of care on a daily basis. Attestation Critical care time 32 minute Burton Pratt MD Nov 10, 2017 17:58
[2017-11-11] VITALS (19 sets, daily range): BP systolic 106–139; BP diastolic 55–80; PULSE 84–118; RESP 19–29; TEMP 98.2–98.4; O2SAT 89–97
[2017-11-11] MEDS: RESP: ALBUTEROL 2.5 MG/IPRATROPIUM 0.5 MG NEB (SCH) NEB ×5 (03:18→20:02)
[2017-11-11] MEDS: METHOCARBAMOL 500 MG TAB PO SCH ×3 (05:23→22:33)
[2017-11-11] MEDS: KETOROLAC TROMETHAMINE 30 MG/ML (IVP) VIAL IV PUSH SCH ×4 (05:23→23:22)
[2017-11-11 05:34] LABS: AUTOMATED NEUTROPHIL # 8.4 TH/MM3 (1.8-7.7); BASOPHIL # 0.1 TH/MM3 (0-0.2); BASOPHIL % 0.6 % (0.0-2.0); EOSINOPHIL # 0.3 TH/MM3 (0-0.4); EOSINOPHIL % 2.6 % (0.0-4.0); HEMATOCRIT 26.5 % (39.0-51.0); HEMOGLOBIN 9.1 GM/DL (13.0-17.0); LYMPH % 7.3 % (9.0-44.0); LYMPHOCYTE # 0.8 TH/MM3 (1.0-4.8); MEAN CELL VOLUME 91.6 FL (80.0-100.0); MEAN CORPUSCULAR HEMOGLOBIN 31.4 PG (27.0-34.0); MEAN CORPUSCULAR HGB CONC 34.3 % (32.0-36.0); MEAN PLATELET VOLUME 7.6 FL (7.0-11.0); MONO % 8.7 % (0.0-8.0); MONOCYTE # 0.9 TH/MM3 (0-0.9); NEUT % 80.8 % (16.0-70.0); PLATELET COUNT 194 TH/MM3 (150-450); RED BLOOD COUNT 2.89 MIL/MM3 (4.50-5.90); RED CELL DISTRIBUTION WIDTH 16.6 % (11.6-17.2); WHITE BLOOD COUNT 10.4 TH/MM3 (4.0-11.0)
[2017-11-11 05:56] LABS: BICARBONATE 31.2 MEQ/L (21.0-32.0); CALCIUM 8.4 MG/DL (8.5-10.1); CREATININE 0.71 MG/DL (0.60-1.30)
[2017-11-11] MEDS: SODIUM CHLOR 0.9% 1000 ML INJ 1,000 ML IV SCH (06:15)
--- NOTE | 2017-11-11 06:45 | RADRPT ---
EXAM DATE/TIME: 11/11/2017 05:03 [facility] COMPARISON: CHEST SINGLE AP, November 10, 2017, 3:06. INDICATIONS : Follow up trauma. Short of breath. MEDICAL HISTORY : None. SURGICAL HISTORY : None. ENCOUNTER: Subsequent ACUITY: 1 week PAIN SCORE: Non-responsive. LOCATION: Bilateral chest FINDINGS: 2 left chest drainage tube is stable in position. Multiple left rib fractures. Persistent patchy ar eas of airspace opacity in the left mid and lower lung with loss of delineation of the entire left he midiaphragm. Persistent mixed interstitial and alveolar infiltrates in the right upper lung. CONCLUSION: Stable bilateral infiltrates. Piter Peters MD on November 11, 2017 at 6:43 Board Certified Radiologist. This report was verified electronically.
[2017-11-11] MEDS: FAMOTIDINE 20 MG TAB PO SCH ×2 (08:08→22:33)
[2017-11-11] MEDS: NICOTINE 14 MG/24 HR PATCH T-DERMAL SCH (08:08)
[2017-11-11] MEDS: GABAPENTIN 300 MG CAP PO SCH ×3 (08:09→17:23)
[2017-11-11] MEDS: LIDOCAINE HCL 5% PATCH T-DERMAL SCH (08:09)
[2017-11-11] MEDS: SODIUM CHLORIDE 0.9% FLUSH 10 ML FLUSH IV FLUSH SCH ×2 (08:09→21:00)
[2017-11-11] MEDS: DOCUSATE SODIUM 100 MG CAP PO SCH ×2 (08:09→22:33)
[2017-11-11] MEDS: REMOVE OLD LIDOCAINE PATCH T-DERMAL SCH ×2 (09:00→21:00)
[2017-11-11] MEDS: MAGNESIUM HYDROXIDE SUSP 30 ML CUP PO SCH ×2 (09:00→21:00)
[2017-11-11] MEDS ORDERED: SODIUM CHLORIDE 0.65% NASAL SPRAY 45 ML BTL EACH NARE PRN (10:45)
[2017-11-11] MEDS ORDERED: POTASSIUM CHLORIDE 20 MEQ CONTROLLED RELEASE TAB PO ONE (10:45)
[2017-11-11] MEDS: ENOXAPARIN SODIUM 30 MG/0.3 ML SYRINGE SQ SCH ×2 (11:49→22:33)
--- NOTE | 2017-11-11 15:09 | HHI.CCPN ---
Subjective Remarks/Hospital Course 53-year-old male patient presents as a trauma alert. The patient he had been unloading a truck and 200 pounds of wood fell on him. In the emergency department he was complaining of severe chest pain on the left side, with diminished breath sounds in the left. He had GCS of 15. He started getting short of breath and blood pressure started to drop in the ambulance. The needle decompression was done on the left side with improvement in symptoms by ambulance crew. The chest tube was then placed for hemopneumothorax by trauma surgeon at the trauma bay. 11/07: Back from OR on mechanical ventilation. Hemodynamics acceptable following lung repair. Minimal drainage from chest tubes. CXR with tubes and lines in good position. 11/08: Both lungs well expanded. Strong on SBTs 5/5 and gas exchange close to normal. Extubate now. 11/09: CXR much worse today with bilateral blossoming contusions and volume loss. Anticipate need for BiPAP or reintubation. Some is excess water, but most is injury. 11/10: Minimal clearing of contusions. Probably needs intermittent BiPAP for rest. May need intubation eventually. 11/11: Breathing with a little less labor today. CXR clearing. Objective Vital Signs Date Time Temp Pulse Resp B/P (MAP) Pulse Ox O2 Delivery O2 Flow Rate FiO2 11/11/17 14:00 103 11/11/17 12:00 98.3 24 128/80 (96) 94 11/11/17 08:38 40 11/11/17 08:13 High Flow Nasal Cannula 30.00 Intake and Output 11/11/17 11/11/17 11/12/17 08:00 16:00 00:00 Intake Total 720 ml Output Total 1371 ml Balance -651 ml Result Diagram: 11/11/17 0439 11/11/17 0439 Imaging Last 24 hours Impressions Pelvis X-Ray 11/06/17 1636 Signed Impressions: Service Date/Time: October 16:27 - CONCLUSION: 1. No definite fracture identified. The exam is somewhat limited as the upper pelvis is not visualized. Thang Victoria MD Head CT 11/06/17 1636 Signed Impressions: Service Date/Time: October 16:57 - CONCLUSION: 1. No acute intracranial abnormality is identified. Thang Victoria MD Chest X-Ray 11/06/17 1636 Signed Impressions: Service Date/Time: October 16:27 - CONCLUSION: 1. There are multiple left-sided rib fractures with pulmonary contusion. There is a small amount of subcutaneous emphysema. CT of the thorax would be of benefit for more definitive assessment. Thang Victoria MD Chest CT 11/06/17 1636 Signed Impressions: Service Date/Time: October 17:05 - CONCLUSION: 1. Numerous segmental lower left rib fractures with lung contusions and small left hemothorax. Dependent consolidation in both lungs. Small left pneumothorax with left chest tube. 2. Negative for traumatic aortic injury. Omar Douglas MD Cervical Spine CT 11/06/17 1636 Signed Impressions: Service Date/Time: October 16:57 - CONCLUSION: 1. Moderate degenerative change. No acute findings. Omar Douglas MD Abdomen/Pelvis CT 11/06/17 1636 Signed Impressions: Service Date/Time: October 17:05 - CONCLUSION: 1. Numerous lower left rib fractures with pneumothorax, lung contusion, left hemothorax and dependent consolidation in the lungs. No acute traumatic injury identified within the abdomen and pelvis. Omar Douglas MD Chest X-Ray 11/06/17 0000 Signed Impressions: Service Date/Time: October 16:27 - CONCLUSION: 1. There is now achest tube in the left chest. There is parenchymal contusion in the left lung and subcutaneous emphysema along the left chest wall 2. Multiple left- sided rib fractures identified. Thang Victoria MD Objective Remarks GENERAL: Well-developed middle-age male. SKIN: Focused skin assessment warm/dry. HEAD: Atraumatic. Normocephalic. EYES: Pupils equal and round. No scleral icterus. No injection or drainage. ENT: No nasal bleeding or discharge. Mucous membranes pink and moist. NECK: Trachea midline. Supple. Airway widely patent. CARDIOVASCULAR: Regular rate and rhythm. No JVD. RESPIRATORY: Bilateral coarse breath sounds left. Few rhonchi right. Labored pattern much improved. GASTROINTESTINAL: Abdomen soft, non-tender, nondistended. BS active. MUSCULOSKELETAL: Well perfused. No edema. NEUROLOGICAL: O X 3, alert. Moves 4 limbs. Conversant. A/P Assessment and Plan Hemopneumothorax - Status post chest tube placement - Management per trauma surgeon - Monitor H&H - Left thoracotomy and partial lung resection 11/07 Multiple rib fractures - Pain control - Incentive spirometer after extubation - Supportive care - Chest PT as tolerated - IS hourly Pulmonary contusion - Chest PT as tolerated - PRVC mode -> CPAP/SBT - Extubated 24 hours ago. - CXR with worsening contusions. DVT GI prophylaxis - Teds SCDs - Pharmacological DVT prophylaxis per trauma surgeon - Pepcid Overall impression: Improved breathing. He is working very hard with IS to good effect. Junior Quesada MD Nov 11, 2017 15:09
[2017-11-11] MEDS ORDERED: RESP: ALBUTEROL 2.5 MG/IPRATROPIUM 0.5 MG NEB (PRN) NEB (17:15)
--- NOTE | 2017-11-11 19:16 | HHI.CCPN ---
Subjective Brief History [place]: Patient transferred to our institution as priority 2 trauma alert after a piece of wood fell on him while he was unloading a truck. Patient sustained massive injuries to the left chest He was resuscitated according trauma principles Final injuries Left hemopneumothorax Serial left rib fractures 5, 6, 7, 8, 9, 10 Respiratory failure Patient now being admitted to ICU for further care Left chest tube drainage decreased and no air leak is noted 24 Hour Review/Hospital Course 11/07/2017 Initially upon the admission patient was hemodynamically stable it was called around 2 AM when patient dropped systolic blood pressure to about 70 mmHg at which time about a liter of old blood port out of the chest tube as patient was being turned. Patient was immediately resuscitated with fluids and initially 1 unit of blood was ordered to be followed with a second Hemoglobin comes back around 9 g/dL however patient does appear somewhat pale to me and I believe he is slowly continuously bleeding into the left chest Patient's rib fractures of severe and it would not be uncommon for patient required thoracotomy and clean out of the chest On auscultation patient has decreased breath sounds on the left side consistent with a probably retained fresh pneumothorax and also contusion of the lung from the initial injury Repeat chest x-ray reveals partial opacification of the left chest Depending on how patient does in next few hours we will decide whether patient needs thoracotomy today or he can be safely watched and managed conservatively 11/07/2017 continuous At 7 AM it is noted that patient keeps pulling out about 150-200 cc/h of blood from the chest tube without stopping. He was transfused 2 units PRBC at hemoglobin of 9 with a repeat hemoglobin being 10 barely moved Decision is made now to take the patient to the operating room for continuous bleeding Patient underwent left thoracotomy and partial resection of the left lower lobe , resection of the ribs and drainage of hemothorax with control of bleeding Patient is now back in the ICU intubated ventilated 11/08 Patient has been extubated in the morning He is awake alert GCS is 15 He is hemodynamically normal He complains of severe incisional pain--he will be started on Dilaudid BREAST TRIMMER-and IV fentanyl will be DC'd 11/09/2017 PTD: 3 Patient is lying in bed. On a partial rebreather - we will transition to high flow O2. Patient remains extremely painful. Discussed with patient the importance of getting out of bed. 11/10/2017 Patient awake alert and oriented Out of bed Bilateral breath sounds decreased over the both lung valles left more than right considering the recent surgery Chest tube drainage is serosanguineous patient has no air leak On the chest x-ray both lungs display some degree of ARDS and of course contusion on the left side with area of resection Patient's respiratory status somewhat precarious in the face of fractures combined with severe lung injury He is alternating between high flow oxygen at about 40 L/min and BiPAP mask There is still some chance the patient might need to be intubated but I hope he will go through this and gradually improve We will gradually wean down the high flow oxygen mobilized the patient encouraged deep breathing coughing and such and he should do okay 11/11/2017 PTD: 5 Patient OOB in a recliner chair on high flow O2. Patient states, "I'm ready to run the [place]." Patient states he tolerated BiPAP overnight. Patient looks much improved with decrease work of breathing today compared to yesterday. Objective Vital Signs Date Time Temp Pulse Resp B/P (MAP) Pulse Ox O2 Delivery O2 Flow Rate FiO2 11/11/17 18:23 22 11/11/17 18:00 108 11/11/17 17:28 96 40 11/11/17 16:00 98.3 139/74 (95) 11/11/17 08:13 High Flow Nasal Cannula 30.00 Intake and Output 11/11/17 11/11/17 11/11/17 07:59 15:59 23:59 Intake Total 720 ml 960 ml Output Total 1371 ml 1190 ml Balance -651 ml -230 ml Result Diagram: 11/11/17 0439 11/11/17 0439 Imaging Last 24 hours Impressions Chest X-Ray 11/11/17 0600 Signed Impressions: Service Date/Time: Saturday, November 11, 2017 05:03 - CONCLUSION: Stable bilateral infiltrates. Piter Peters MD Objective Remarks GENERAL: This is a 52-year-old male but will be a recliner chair. No distress noted. SKIN: Warm and dry. Left lateral thoracotomy incision site noted. HEAD: Atraumatic. Normocephalic. EYES: PERRLA ENT: No nasal bleeding or discharge. Mucous membranes pink and moist. NECK: Trachea midline. No JVD. CARDIOVASCULAR: Regular rate and rhythm. RESPIRATORY: High flow O2. No accessory muscle use. Lungs are coarse to auscultation. Breath sounds equal bilaterally. No distress or dyspnea. Left lateral chest tube 2 to Pleur-evac drainage system to 20 cm suction. Dressing CDI GASTROINTESTINAL: BS + x 4 quads. Abdomen soft, non-tender, nondistended. MUSCULOSKELETAL: Extremities without cyanosis, or edema. + peripheral pulses x 4 extremities. Warm with good capillary refill and sensation. MAEW. NEUROLOGICAL: Awake and alert. Normal speech and pattern. 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 No LOC. GCS 15. Needle decompression in the field. INJURIES: LEFT rib fxs (FLAIL) LEFT SALVADOR/PTX LEFT lung contusion ? aspiration PMHx: Procedures: 11/06: L CT placement 11/07 LEFT thoracotomy and partial resection of the left lower lobe, resection of the ribs and drainage of hemothorax with control of bleeding, chest tube placement Consults: CCM. Case management. Diet: Regular diet. Tolerating po diet. Encourage good po intake with each meal. Pulmonary: Encourage good pulmonary toileting. IS and acapella at bedside and pt encouraged to use. Rationale for use explained to patient, and verbalized understanding. EZ pap and duonebs. Patient tolerating high flow O2 nasal cannula. Additionally tolerated BiPAP overnight. Left lateral chest tube 2 to Pleur-evac drainage system to 20 cm suction. Dressing CDI. CT output = 115 ml / 24 hrs. Chest x-ray stable. Follow chest x-ray in the morning Daily chest tube dressing changes. May leave thoracotomy incision site open to air. H&H = 9.1 / 26.5. Monitor closely. Monitor patient for signs and symptoms of bleeding. PAIN Management: Oxycodone 5-10 q4h, Fentanyl patch 50mcg, Morphine 4mg q3h, Robaxin 500 mg q8h. Neurontin 300 TID. LIdoderm patch. Activity: OOB. PT ordered GI prophylaxis: Pepcid 20 mg BID po Bowel regimen: Colace and MOM. LBM: 11/10 DVT prophylaxis: Mechanical VTE with SCDs. Chemical management with Lovenox 30 mg BID SQ. DC Planning: Case management consulted for assistance with final discharge disposition. Emotional support provided to patient and family at bedside and plan of care discussed. Discussed with RN at bedside. Discussed pt condition and plan of care with collaborating trauma surgeon. Patient is currently being managed in the ICU The trauma team will round each day, and evaluate plan of care on a daily basis. Radha Norris Nov 11, 2017 19:16
[2017-11-12] VITALS (17 sets, daily range): BP systolic 102–123; BP diastolic 58–74; PULSE 80–108; RESP 22–30; TEMP 98.5–99.2; O2SAT 89–100
[2017-11-12] MEDS: RESP: ALBUTEROL 2.5 MG/IPRATROPIUM 0.5 MG NEB (SCH) NEB ×7 (00:28→23:41)
[2017-11-12] MEDS: SODIUM CHLOR 0.9% 1000 ML INJ 1,000 ML IV SCH (06:00)
[2017-11-12] MEDS: METHOCARBAMOL 500 MG TAB PO SCH ×3 (06:01→21:23)
--- NOTE | 2017-11-12 06:03 | RADRPT ---
EXAM DATE/TIME: 11/12/2017 04:43 [facility] COMPARISON: CHEST SINGLE AP, November 11, 2017, 5:03. INDICATIONS : Short of breath. MEDICAL HISTORY : None. SURGICAL HISTORY : None. ENCOUNTER: Subsequent ACUITY: 1 week PAIN SCORE: 0/10 LOCATION: Bilateral chest FINDINGS: 2 left chest drainage tubes stable in position. Stable appearance to the left lower lung consolidati on and ill-defined areas of parenchymal opacity in the right upper lung. Multiple displaced left rib fractures similar to prior. No pneumothorax seen. CONCLUSION: Stable no consolidative infiltrates in the right upper lung and consolidation in the left lower lobe. Piter Peters MD on November 12, 2017 at 6:01 Board Certified Radiologist. This report was verified electronically.
[2017-11-12] MEDS: NICOTINE 14 MG/24 HR PATCH T-DERMAL SCH (08:45)
[2017-11-12] MEDS: LIDOCAINE HCL 5% PATCH T-DERMAL SCH (08:45)
[2017-11-12] MEDS: GABAPENTIN 300 MG CAP PO SCH ×3 (08:46→17:11)
[2017-11-12] MEDS: SODIUM CHLORIDE 0.9% FLUSH 10 ML FLUSH IV FLUSH SCH ×2 (08:46→21:00)
[2017-11-12] MEDS: FAMOTIDINE 20 MG TAB PO SCH ×2 (08:46→21:23)
[2017-11-12] MEDS: DOCUSATE SODIUM 100 MG CAP PO SCH ×2 (08:46→21:23)
[2017-11-12] MEDS: MAGNESIUM HYDROXIDE SUSP 30 ML CUP PO SCH ×2 (08:46→21:22)
[2017-11-12] MEDS: ENOXAPARIN SODIUM 30 MG/0.3 ML SYRINGE SQ SCH ×2 (11:29→23:00)
--- NOTE | 2017-11-12 14:52 | HHI.CCPN ---
Subjective Remarks/Hospital Course 53-year-old male patient presents as a trauma alert. The patient he had been unloading a truck and 200 pounds of wood fell on him. In the emergency department he was complaining of severe chest pain on the left side, with diminished breath sounds in the left. He had GCS of 15. He started getting short of breath and blood pressure started to drop in the ambulance. The needle decompression was done on the left side with improvement in symptoms by ambulance crew. The chest tube was then placed for hemopneumothorax by trauma surgeon at the trauma bay. 11/07: Back from OR on mechanical ventilation. Hemodynamics acceptable following lung repair. Minimal drainage from chest tubes. CXR with tubes and lines in good position. 11/08: Both lungs well expanded. Strong on SBTs 5/5 and gas exchange close to normal. Extubate now. 11/09: CXR much worse today with bilateral blossoming contusions and volume loss. Anticipate need for BiPAP or reintubation. Some is excess water, but most is injury. 11/10: Minimal clearing of contusions. Probably needs intermittent BiPAP for rest. May need intubation eventually. 11/11: Breathing with a little less labor today. CXR clearing. 11/12: He is truly working very hard with his breathing exercises and incentive spirometry. He has a strong cough effort and produces sputum well. The radiographic appearance of the new interstitial process is disconcerting and I hope temporary. For now he remains oxygenated with acceptable levels on high flow oxygen cannula but he remains at risk for reintubation. Objective Vital Signs Date Time Temp Pulse Resp B/P (MAP) Pulse Ox O2 Delivery O2 Flow Rate FiO2 11/12/17 14:00 101 11/12/17 12:00 98.7 30 123/70 (87) 89 11/12/17 10:13 High Flow Nasal Cannula 30.00 50 Intake and Output 11/12/17 11/12/17 11/13/17 08:00 16:00 00:00 Intake Total 1240 ml Output Total 1430 ml Balance -190 ml Result Diagram: 11/11/17 0439 11/11/17 0439 Imaging Last 24 hours Impressions Pelvis X-Ray 11/06/17 8296 Signed Impressions: Service Date/Time: October 16:27 - CONCLUSION: 1. No definite fracture identified. The exam is somewhat limited as the upper pelvis is not visualized. Thang Victoria MD Head CT 11/06/17 1636 Signed Impressions: Service Date/Time: October 16:57 - CONCLUSION: 1. No acute intracranial abnormality is identified. Thang Victoria MD Chest X-Ray 11/06/17 1636 Signed Impressions: Service Date/Time: October 16:27 - CONCLUSION: 1. There are multiple left-sided rib fractures with pulmonary contusion. There is a small amount of subcutaneous emphysema. CT of the thorax would be of benefit for more definitive assessment. Thang Victoria MD Chest CT 11/06/17 1636 Signed Impressions: Service Date/Time: October 17:05 - CONCLUSION: 1. Numerous segmental lower left rib fractures with lung contusions and small left hemothorax. Dependent consolidation in both lungs. Small left pneumothorax with left chest tube. 2. Negative for traumatic aortic injury. Omar Douglas MD Cervical Spine CT [id number] Signed Impressions: Service Date/Time: October 16:57 - CONCLUSION: 1. Moderate degenerative change. No acute findings. Omar Douglas MD Abdomen/Pelvis CT [id number]/[id number] Signed Impressions: Service Date/Time: October 17:05 - CONCLUSION: 1. Numerous lower left rib fractures with pneumothorax, lung contusion, left hemothorax and dependent consolidation in the lungs. No acute traumatic injury identified within the abdomen and pelvis. Omar Douglas MD Chest X-Ray 11/06/17 0000 Signed Impressions: Service Date/Time: October 16:27 - CONCLUSION: 1. There is now achest tube in the left chest. There is parenchymal contusion in the left lung and subcutaneous emphysema along the left chest wall 2. Multiple left- sided rib fractures identified. Thang Victoria MD Objective Remarks GENERAL: exhausted. SKIN: Focused skin assessment warm/dry. HEAD: Atraumatic. Normocephalic. EYES: Pupils equal and round. No scleral icterus. No injection or drainage. ENT: No nasal bleeding or discharge. Mucous membranes pink and moist. NECK: Trachea midline. Supple. Airway widely patent. CARDIOVASCULAR: Regular rate and rhythm. No JVD. RESPIRATORY: Coarse breath sounds persist and his cough remains productive. Respiratory effort remains labored. Conversational dyspnea. GASTROINTESTINAL: Abdomen soft, non-tender, nondistended. BS active. MUSCULOSKELETAL: Well perfused. No edema. NEUROLOGICAL: O X 3, alert. Moves 4 limbs. Conversant. A/P Assessment and Plan Hemopneumothorax - Status post chest tube placement - Management per trauma surgeon - Monitor H&H - Left thoracotomy and partial lung resection 11/07 Multiple rib fractures - Pain control - Incentive spirometer after extubation - Supportive care - Chest PT as tolerated - IS hourly Pulmonary contusion - Chest PT as tolerated - PRVC mode -> CPAP/SBT - Extubated 24 hours ago. - CXR with worsening contusions. DVT GI prophylaxis - Teds SCDs - Pharmacological DVT prophylaxis per trauma surgeon - Pepcid Overall impression: Improved breathing. He is still labored. Junior Quesada MD Nov 12, 2017 14:52
[2017-11-12] MEDS: ONDANSETRON HCL 4 MG/2 ML VIAL IV PUSH PRN (15:29)
--- NOTE | 2017-11-12 18:03 | HHI.CCPN ---
Subjective Brief History [place]: Patient transferred to our institution as priority 2 trauma alert after a piece of wood fell on him while he was unloading a truck. Patient sustained massive injuries to the left chest He was resuscitated according trauma principles Final injuries Left hemopneumothorax Serial left rib fractures 5, 6, 7, 8, 9, 10 Respiratory failure Patient now being admitted to ICU for further care Left chest tube drainage decreased and no air leak is noted 24 Hour Review/Hospital Course 11/07/2017 Initially upon the admission patient was hemodynamically stable it was called around 2 AM when patient dropped systolic blood pressure to about 70 mmHg at which time about a liter of old blood port out of the chest tube as patient was being turned. Patient was immediately resuscitated with fluids and initially 1 unit of blood was ordered to be followed with a second Hemoglobin comes back around 9 g/dL however patient does appear somewhat pale to me and I believe he is slowly continuously bleeding into the left chest Patient's rib fractures of severe and it would not be uncommon for patient required thoracotomy and clean out of the chest On auscultation patient has decreased breath sounds on the left side consistent with a probably retained fresh pneumothorax and also contusion of the lung from the initial injury Repeat chest x-ray reveals partial opacification of the left chest Depending on how patient does in next few hours we will decide whether patient needs thoracotomy today or he can be safely watched and managed conservatively 11/07/2017 continuous At 7 AM it is noted that patient keeps pulling out about 150-200 cc/h of blood from the chest tube without stopping. He was transfused 2 units PRBC at hemoglobin of 9 with a repeat hemoglobin being 10 barely moved Decision is made now to take the patient to the operating room for continuous bleeding Patient underwent left thoracotomy and partial resection of the left lower lobe , resection of the ribs and drainage of hemothorax with control of bleeding Patient is now back in the ICU intubated ventilated 11/08 Patient has been extubated in the morning He is awake alert GCS is 15 He is hemodynamically normal He complains of severe incisional pain--he will be started on Dilaudid SUPERVISOR REFINING-and IV fentanyl will be DC'd 11/09/2017 PTD: 3 Patient is lying in bed. On a partial rebreather - we will transition to high flow O2. Patient remains extremely painful. Discussed with patient the importance of getting out of bed. 11/10/2017 Patient awake alert and oriented Out of bed Bilateral breath sounds decreased over the both lung valles left more than right considering the recent surgery Chest tube drainage is serosanguineous patient has no air leak On the chest x-ray both lungs display some degree of ARDS and of course contusion on the left side with area of resection Patient's respiratory status somewhat precarious in the face of fractures combined with severe lung injury He is alternating between high flow oxygen at about 40 L/min and BiPAP mask There is still some chance the patient might need to be intubated but I hope he will go through this and gradually improve We will gradually wean down the high flow oxygen mobilized the patient encouraged deep breathing coughing and such and he should do okay 11/11/2017 PTD: 5 Patient OOB in a recliner chair on high flow O2. Patient states, "I'm ready to run the [place]." Patient states he tolerated BiPAP overnight. Patient looks much improved with decrease work of breathing today compared to yesterday. 11/12/2017 PTD: 6 Patient lying in bed. No distress noted. Patient tolerated BiPAP overnight. Currently on high flow O2 30 L/60% FiO2 Patient showed us a picture of his chest tube and thoracotomy that was taken when his chest tube dressing was changed this morning. Objective Vital Signs Date Time Temp Pulse Resp B/P (MAP) Pulse Ox O2 Delivery O2 Flow Rate FiO2 11/12/17 14:00 101 11/12/17 12:00 98.7 30 123/70 (87) 89 11/12/17 10:13 High Flow Nasal Cannula 30.00 50 Intake and Output 11/12/17 11/12/17 11/13/17 08:00 16:00 00:00 Intake Total 1240 ml Output Total 1430 ml Balance -190 ml Result Diagram: 11/11/17 0439 11/11/17 0439 Imaging Last 24 hours Impressions Chest X-Ray 11/12/17 0600 Signed Impressions: Service Date/Time: Sunday, November 12, 2017 04:43 - CONCLUSION: Stable no consolidative infiltrates in the right upper lung and consolidation in the left lower lobe. Piter Peters MD Objective Remarks GENERAL: This is a 52-year-old male but will be a recliner chair. No distress noted. SKIN: Warm and dry. Left lateral thoracotomy incision site noted. HEAD: Atraumatic. Normocephalic. EYES: PERRLA ENT: No nasal bleeding or discharge. Mucous membranes pink and moist. NECK: Trachea midline. No JVD. CARDIOVASCULAR: Regular rate and rhythm. RESPIRATORY: High flow O2. No accessory muscle use. Lungs are coarse to auscultation. Breath sounds equal bilaterally. No distress or dyspnea. Left lateral chest tube 2 to Pleur-evac drainage system to 20 cm suction. No air leak noted Dressing CDI GASTROINTESTINAL: BS + x 4 quads. Abdomen soft, non-tender, nondistended. MUSCULOSKELETAL: Extremities without cyanosis, or edema. + peripheral pulses x 4 extremities. Warm with good capillary refill and sensation. MAEW. NEUROLOGICAL: Awake and alert. Normal speech and pattern. 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 No LOC. GCS 15. Needle decompression in the field. INJURIES: LEFT rib fxs (FLAIL) LEFT SALVADOR/PTX LEFT lung contusion ? aspiration PMHx: Procedures: 11/06: L CT placement 11/07 LEFT thoracotomy and partial resection of the left lower lobe, resection of the ribs and drainage of hemothorax with control of bleeding, chest tube placement Consults: [facility]. Case management. Diet: Regular diet. Tolerating po diet. Encourage good po intake with each meal. Pulmonary: Encourage good pulmonary toileting. IS and acapella at bedside and pt encouraged to use. Rationale for use explained to patient, and verbalized understanding. EZ pap and duonebs. Patient tolerating high flow O2 nasal cannula - wean-low as tolerated. Additionally tolerated BiPAP overnight. Left lateral chest tube 2 to Pleur-evac drainage system to 20 cm suction. No air leak noted . Dressing CDI. CT output = 145 ml / 24 hrs. Chest x-ray stable. Follow chest x-ray in the morning Daily chest tube dressing changes. May leave thoracotomy incision site open to air. H&H = 9.1 / 26.5. Monitor closely. Monitor patient for signs and symptoms of bleeding. PAIN Management: Oxycodone 5-10 mg q4h, Fentanyl patch 50mcg, Morphine 4mg q3h, Robaxin 500 mg q8h. Neurontin 300 TID. Lidoderm patch. Activity: OOB. PT ordered GI prophylaxis: Pepcid 20 mg BID po Bowel regimen: Colace and MOM. LBM: 11/10 DVT prophylaxis: Mechanical VTE with SCDs. Chemical management with Lovenox 30 mg BID SQ. DC Planning: Case management consulted for assistance with final discharge disposition. Emotional support provided to patient and family at bedside and plan of care discussed. Discussed with RN at bedside. Discussed pt condition and plan of care with collaborating trauma surgeon. Patient is currently being managed in the ICU The trauma team will round each day, and evaluate plan of care on a daily basis. Radha Norris Nov 12, 2017 18:03
[2017-11-12] MEDS: REMOVE OLD LIDOCAINE PATCH T-DERMAL SCH (21:00)
[2017-11-13] VITALS (15 sets, daily range): BP systolic 111–138; BP diastolic 64–90; PULSE 88–103; RESP 17–29; TEMP 98–100.5; O2SAT 29–99
--- NOTE | 2017-11-13 03:27 | RADRPT ---
EXAM DATE/TIME: 11/13/2017 02:54 [facility] COMPARISON: CHEST SINGLE AP, November 12, 2017, 4:43. INDICATIONS : Follow up trauma. Short of breath. MEDICAL HISTORY : None. SURGICAL HISTORY : None. ENCOUNTER: Subsequent ACUITY: 1 week PAIN SCORE: Non-responsive. LOCATION: Bilateral chest FINDINGS: Stable positions of the 2 left chest drainage tubes and rib fractures. There is increasing consolida tion in the lower lateral left chest. Ill-defined non-consolidative infiltrates in the right upper l marissa similar to prior. CONCLUSION: Increasing consolidation in the lower lateral left lung. Stable faint infiltrates in the right upper lobe. Piter Peters MD on November 13, 2017 at 3:22 Board Certified Radiologist. This report was verified electronically.
[2017-11-13 05:03] LABS: BASOPHIL # 0.1 TH/MM3 (0-0.2); BASOPHIL % 0.6 % (0.0-2.0); EOSINOPHIL # 0.4 TH/MM3 (0-0.4); EOSINOPHIL % 2.5 % (0.0-4.0); HEMATOCRIT 23.5 % (39.0-51.0); HEMOGLOBIN 8.1 GM/DL (13.0-17.0); LYMPH % 6.2 % (9.0-44.0); LYMPHOCYTE # 0.9 TH/MM3 (1.0-4.8); MEAN CELL VOLUME 91.5 FL (80.0-100.0); MEAN CORPUSCULAR HEMOGLOBIN 31.5 PG (27.0-34.0); MEAN CORPUSCULAR HGB CONC 34.4 % (32.0-36.0); MEAN PLATELET VOLUME 7.4 FL (7.0-11.0); MONO % 10.5 % (0.0-8.0); MONOCYTE # 1.6 TH/MM3 (0-0.9); NEUT % 80.2 % (16.0-70.0); PLATELET COUNT 307 TH/MM3 (150-450); RED BLOOD COUNT 2.57 MIL/MM3 (4.50-5.90); RED CELL DISTRIBUTION WIDTH 16.4 % (11.6-17.2)
[2017-11-13 05:27] LABS: AST (GOT) 37 U/L (15-37); BICARBONATE 28.9 MEQ/L (21.0-32.0); BLOOD UREA NITROGEN 13 MG/DL (7-18); CALCIUM 8.3 MG/DL (8.5-10.1); CHLORIDE 92 MEQ/L (98-107); CREATININE 0.75 MG/DL (0.60-1.30); GLOMERULAR FILTRATION RATE 109 ML/MIN (>89); GLUCOSE,RANDOM 112 MG/DL (74-106); SODIUM (NA) 131 MEQ/L (136-145)
[2017-11-13 05:30] LABS: ALKALINE PHOSPHATASE 161 U/L (45-117); ALT (GPT) 25 U/L (12-78); TOTAL BILIRUBIN ADULT 0.5 MG/DL (0.2-1.0); TOTAL PROTEIN 6.6 GM/DL (6.4-8.2)
[2017-11-13] MEDS: METHOCARBAMOL 500 MG TAB PO SCH ×3 (05:40→20:13)
[2017-11-13] MEDS: SODIUM CHLOR 0.9% 1000 ML INJ 1,000 ML IV SCH (06:15)
[2017-11-13] MEDS: ENOXAPARIN SODIUM 30 MG/0.3 ML SYRINGE SQ SCH ×2 (09:34→23:00)
[2017-11-13] MEDS: GABAPENTIN 300 MG CAP PO SCH ×3 (09:34→17:29)
[2017-11-13] MEDS: SODIUM CHLORIDE 0.9% FLUSH 10 ML FLUSH IV FLUSH SCH ×2 (09:34→20:15)
[2017-11-13] MEDS: FAMOTIDINE 20 MG TAB PO SCH ×2 (09:34→20:13)
[2017-11-13] MEDS: MAGNESIUM HYDROXIDE SUSP 30 ML CUP PO SCH ×2 (09:35→20:13)
[2017-11-13] MEDS: DOCUSATE SODIUM 100 MG CAP PO SCH ×2 (09:35→20:13)
[2017-11-13] MEDS: LIDOCAINE HCL 5% PATCH T-DERMAL SCH (09:35)
[2017-11-13] MEDS: NICOTINE 14 MG/24 HR PATCH T-DERMAL SCH (09:35)
[2017-11-13] MEDS: REMOVE OLD DURAGESIC (FENTANYL) PATCH T-DERMAL SCH (12:00)
[2017-11-13] MEDS: fentaNYL 50 MCG/HR PATCH T-DERMAL SCH (12:34)
--- NOTE | 2017-11-13 16:00 | HHI.CCPN ---
Subjective Brief History [place] CH[place]: Patient transferred to our institution as priority 2 trauma alert after a piece of wood fell on him while he was unloading a truck. Patient sustained massive injuries to the left chest He was resuscitated according trauma principles Final injuries Left hemopneumothorax Serial left rib fractures 5, 6, 7, 8, 9, 10 Respiratory failure Patient now being admitted to ICU for further care Left chest tube drainage decreased and no air leak is noted 24 Hour Review/Hospital Course 11/07/2017 Initially upon the admission patient was hemodynamically stable it was called around 2 AM when patient dropped systolic blood pressure to about 70 mmHg at which time about a liter of old blood port out of the chest tube as patient was being turned. Patient was immediately resuscitated with fluids and initially 1 unit of blood was ordered to be followed with a second Hemoglobin comes back around 9 g/dL however patient does appear somewhat pale to me and I believe he is slowly continuously bleeding into the left chest Patient's rib fractures of severe and it would not be uncommon for patient required thoracotomy and clean out of the chest On auscultation patient has decreased breath sounds on the left side consistent with a probably retained fresh pneumothorax and also contusion of the lung from the initial injury Repeat chest x-ray reveals partial opacification of the left chest Depending on how patient does in next few hours we will decide whether patient needs thoracotomy today or he can be safely watched and managed conservatively 11/07/2017 continuous At 7 AM it is noted that patient keeps pulling out about 150-200 cc/h of blood from the chest tube without stopping. 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 On a partial rebreather - we will transition to high flow O2. Patient remains extremely painful. Discussed with patient the importance of getting out of bed. 11/10/2017 Patient awake alert and oriented Out of bed Bilateral breath sounds decreased over the both lung valles left more than right considering the recent surgery Chest tube drainage is serosanguineous patient has no air leak On the chest x-ray both lungs display some degree of ARDS and of course contusion on the left side with area of resection Patient's respiratory status somewhat precarious in the face of fractures combined with severe lung injury He is alternating between high flow oxygen at about 40 L/min and BiPAP mask There is still some chance the patient might need to be intubated but I hope he will go through this and gradually improve We will gradually wean down the high flow oxygen mobilized the patient encouraged deep breathing coughing and such and he should do okay 11/11/2017 PTD: 5 Patient OOB in a recliner chair on high flow O2. Patient states, "I'm ready to run the Omega." Patient states he tolerated BiPAP overnight. Patient looks much improved with decrease work of breathing today compared to yesterday. 11/12/2017 PTD: 6 Patient lying in bed. No distress noted. Patient tolerated BiPAP overnight. Currently on high flow O2 30 L/60% FiO2 Patient showed us a picture of his chest tube and thoracotomy that was taken when his chest tube dressing was changed this morning. 11/13/2017 PTD: 7 Patient sitting on the side of the bed. No distress noted. He has successfully been weaned down to 6 L nasal cannula from high flow. Patient is in good spirits. No distress noted. Objective Vital Signs Date Time Temp Pulse Resp B/P (MAP) Pulse Ox O2 Delivery O2 Flow Rate FiO2 11/13/17 14:00 98 11/13/17 13:46 22 11/13/17 12:00 98.0 111/67 (82) 29 11/13/17 10:36 Nasal Cannula 6.00 11/13/17 07:00 60 Intake and Output 11/13/17 11/13/17 11/14/17 08:00 16:00 00:00 Intake Total 700 ml Output Total 940 ml Balance -240 ml Result Diagram: 11/13/17 0442 11/13/17 0442 Imaging Last 24 hours Impressions Chest X-Ray 11/13/17 0600 Signed Impressions: Service Date/Time: October 02:54 - CONCLUSION: Increasing consolidation in the lower lateral left lung. Stable faint infiltrates in the right upper lobe. Piter Peters MD Objective Remarks GENERAL: This is a 52-year-old male but will be a recliner chair. No distress noted. SKIN: Warm and dry. Left lateral thoracotomy incision site noted. HEAD: Atraumatic. Normocephalic. EYES: PERRLA ENT: No nasal bleeding or discharge. Mucous membranes pink and moist. NECK: Trachea midline. No JVD. CARDIOVASCULAR: Regular rate and rhythm. RESPIRATORY: High flow O2. No accessory muscle use. Lungs are coarse to auscultation. Breath sounds equal bilaterally. No distress or dyspnea. Left lateral chest tube 2 to Pleur-evac drainage system to 20 cm suction. No air leak noted Dressing CDI GASTROINTESTINAL: BS + x 4 quads. Abdomen soft, non-tender, nondistended. MUSCULOSKELETAL: Extremities without cyanosis, or edema. + peripheral pulses x 4 extremities. Warm with good capillary refill and sensation. MAEW. NEUROLOGICAL: Awake and alert. Normal speech and pattern. 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 No LOC. GCS 15. Needle decompression in the field. INJURIES: LEFT rib fxs (FLAIL) LEFT SALVADOR/PTX LEFT lung contusion ? aspiration PMHx: Procedures: 11/06: L CT placement 11/07 LEFT thoracotomy and partial resection of the left lower lobe, resection of the ribs and drainage of hemothorax with control of bleeding, chest tube placement Consults: [facility]. Case management. Diet: Regular diet. Tolerating po diet. Encourage good po intake with each meal. Pulmonary: Encourage good pulmonary toileting. IS and acapella at bedside and pt encouraged to use. Rationale for use explained to patient, and verbalized understanding. EZ pap and duonebs. Patient successfully transitioned to 6 L nasal cannula from a high flow O2. Left lateral chest tube 2 to Pleur-evac drainage system to 20 cm suction. No air leak noted . Dressing CDI. CT output = 140 ml / 24 hrs. Chest x-ray with increasing consolidation in the left lower lung. * Obtain CT thorax today for further evaluation. Daily chest tube dressing changes. H&H = 1..5. Monitor closely. Monitor patient for signs and symptoms of bleeding. PAIN Management: Oxycodone 5-10 mg q4h, Fentanyl patch 50mcg, Morphine 4mg q3h, Robaxin 500 mg q8h. Neurontin 300 TID. Lidoderm patch. Activity: OOB. PT ordered. Encourage out of bed GI prophylaxis: Pepcid 20 mg BID po Bowel regimen: Colace and MOM. LBM: 11/10 DVT prophylaxis: Mechanical VTE with SCDs. Chemical management with Lovenox 30 mg BID SQ. DC Planning: Case management consulted for assistance with final discharge disposition. Emotional support provided to patient and family at bedside and plan of care discussed. Discussed with RN at bedside. Discussed pt condition and plan of care with collaborating trauma surgeon. Patient is currently being managed in the ICU, however he may be transferred to the [facility] floor The trauma team will round each day, and evaluate plan of care on a daily basis. Radha Norris Nov 13, 2017 16:00
--- NOTE | 2017-11-13 16:29 | HHI.CCPN ---
Subjective Remarks/Hospital Course 53-year-old male patient presents as a trauma alert. The patient he had been unloading a truck and 200 pounds of wood fell on him. In the emergency department he was complaining of severe chest pain on the left side, with diminished breath sounds in the left. He had GCS of 15. He started getting short of breath and blood pressure started to drop in the ambulance. The needle decompression was done on the left side with improvement in symptoms by ambulance crew. The chest tube was then placed for hemopneumothorax by trauma surgeon at the trauma bay. 11/07: Back from OR on mechanical ventilation. Hemodynamics acceptable following lung repair. Minimal drainage from chest tubes. CXR with tubes and lines in good position. 11/08: Both lungs well expanded. Strong on SBTs 5/5 and gas exchange close to normal. Extubate now. 11/09: CXR much worse today with bilateral blossoming contusions and volume loss. Anticipate need for BiPAP or reintubation. Some is excess water, but most is injury. 11/10: Minimal clearing of contusions. Probably needs intermittent BiPAP for rest. May need intubation eventually. 11/11: Breathing with a little less labor today. CXR clearing. 11/12: He is truly working very hard with his breathing exercises and incentive spirometry. He has a strong cough effort and produces sputum well. The radiographic appearance of the new interstitial process is disconcerting and I hope temporary. For now he remains oxygenated with acceptable levels on high flow oxygen cannula but he remains at risk for reintubation. 11/13: Continues to work hard to clear lungs. Oxygen diffusion gradient remains high but acceptable. Subpulmonic air right side ne, follow. Objective Vital Signs Date Time Temp Pulse Resp B/P (MAP) Pulse Ox O2 Delivery O2 Flow Rate FiO2 11/13/17 15:57 Nasal Cannula 6.00 11/13/17 14:00 98 11/13/17 13:46 22 11/13/17 12:00 98.0 111/67 (82) 29 11/13/17 07:00 60 Intake and Output 11/13/17 11/13/17 11/14/17 08:00 16:00 00:00 Intake Total 700 ml Output Total 940 ml Balance -240 ml Result Diagram: 11/13/17 0442 11/13/17 0442 Imaging Last 24 hours Impressions Pelvis X-Ray 11/06/17 1636 Signed Impressions: Service Date/Time: October 16:27 - CONCLUSION: 1. No definite fracture identified. The exam is somewhat limited as the upper pelvis is not visualized. Thang Victoria MD Head CT 11/06/17 1636 Signed Impressions: Service Date/Time: October 16:57 - CONCLUSION: 1. No acute intracranial abnormality is identified. Thang Victoria MD Chest X-Ray 11/06/17 1636 Signed Impressions: Service Date/Time: October 16:27 - CONCLUSION: 1. There are multiple left-sided rib fractures with pulmonary contusion. There is a small amount of subcutaneous emphysema. CT of the thorax would be of benefit for more definitive assessment. Thang Victoria MD Chest CT 11/06/17 1636 Signed Impressions: Service Date/Time: October 17:05 - CONCLUSION: 1. Numerous segmental lower left rib fractures with lung contusions and small left hemothorax. Dependent consolidation in both lungs. Small left pneumothorax with left chest tube. 2. Negative for traumatic aortic injury. Omar Douglas MD Cervical Spine CT 11/06/17 1636 Signed Impressions: Service Date/Time: October 16:57 - CONCLUSION: 1. Moderate degenerative change. No acute findings. Omar Douglas MD Abdomen/Pelvis CT 11/06/17 1636 Signed Impressions: Service Date/Time: October 17:05 - CONCLUSION: 1. Numerous lower left rib fractures with pneumothorax, lung contusion, left hemothorax and dependent consolidation in the lungs. No acute traumatic injury identified within the abdomen and pelvis. Omar Douglas MD Chest X-Ray 11/06/17 0000 Signed Impressions: Service Date/Time: October 16:27 - CONCLUSION: 1. There is now achest tube in the left chest. There is parenchymal contusion in the left lung and subcutaneous emphysema along the left chest wall 2. Multiple left- sided rib fractures identified. Thang Victoria MD Objective Remarks GENERAL: Well-developed middle-age male. HEAD: Atraumatic. Normocephalic. EYES: Pupils equal and round. No scleral icterus. No injection or drainage. ENT: No nasal bleeding or discharge. Mucous membranes pink and moist. NECK: Trachea midline. Supple. Airway widely patent. CARDIOVASCULAR: Regular rate and rhythm. No JVD. RESPIRATORY: Bilateral coarse breath sounds, worse left. Few rhonchi right. Labored pattern remains improved. GASTROINTESTINAL: Abdomen soft, non-tender, nondistended. BS active. MUSCULOSKELETAL: Well perfused. No edema. NEUROLOGICAL: O X 3, alert. Moves 4 limbs. Conversant. Intact. A/P Assessment and Plan Hemopneumothorax - Status post chest tube placement - Management per trauma surgeon - Monitor H&H - Left thoracotomy and partial lung resection 11/07 Multiple rib fractures - Pain control - Incentive spirometer after extubation - Supportive care - Chest PT as tolerated - IS hourly Pulmonary contusion - Chest PT as tolerated - PRVC mode -> CPAP/SBT - Extubated 24 hours ago. - CXR with worsening contusions. DVT GI prophylaxis - Teds SCDs - Pharmacological DVT prophylaxis per trauma surgeon - Pepcid Overall impression: Improved breathing. Making progress. Still labored with any exertion. Junior Quesada MD Nov 13, 2017 16:29
[2017-11-13] MEDS: REMOVE OLD LIDOCAINE PATCH T-DERMAL SCH (20:13)
--- NOTE | 2017-11-13 21:00 | RADRPT ---
EXAM DATE/TIME: 11/13/2017 19:34 [facility] COMPARISON: No previous studies available for comparison. INDICATIONS : Short of breath chest tube RADIATION DOSE: 844 CTDIvol (mGy) MEDICAL HISTORY : Hypertension. SURGICAL HISTORY : None. ENCOUNTER: Initial ACUITY: 1 day PAIN SCALE: 4/10 LOCATION: chest TECHNIQUE: Volumetric scanning of the chest was performed. Using automated exposure control and adjustment of t he mA and/or kV according to patient size, radiation dose was kept as low as reasonably achievable to obtain optimal diagnostic quality images. DICOM format image data is available electronically for r eview and comparison. Follow-up recommendations for detected pulmonary nodules are based at a minimum on nodule size and pa tient risk factors according to Fleischner Society Guidelines. FINDINGS: There is dense consolidation at the left lung base with numerous displaced left-sided rib fractures a nd 2 left chest tubes present. No significant pneumothorax. There is right-sided airspace disease as well predominantly groundglass opacity in the right upper lobe and right middle lobe as well as some distal airway disease. Mild emphysema. Small left pleural effusion. Small pericardial effusion. No acute findings in the upper abdomen. CONCLUSION: 1. Dense consolidation left lower lobe with air bronchograms. Primary differential diagnosis is pneum onia. 2. Numerous left rib fractures with small left effusion. No significant pneumothorax. 3. Groundglass opacity in the right anomaly in the upper lobe and middle lobe with distal airway dise ase and mucoid plugging. 4. Mild emphysema. 5. Trace pericardial effusion. Omar Douglas MD on November 13, 2017 at 20:53 Board Certified Radiologist. This report was verified electronically.
[2017-11-14] VITALS (9 sets, daily range): BP systolic 104–139; BP diastolic 59–84; PULSE 90–111; RESP 17–18; TEMP 97.7–99.1; O2SAT 86–96
[2017-11-14] MEDS ORDERED: LACTULOSE SYRUP 20 GM/30 ML CUP PO ONE (05:45)
[2017-11-14] MEDS ORDERED: LACTULOSE SYRUP 20 GM/30 ML CUP PO PRN (05:45)
[2017-11-14] MEDS: METHOCARBAMOL 500 MG TAB PO SCH ×3 (05:48→22:05)
[2017-11-14] MEDS: SODIUM CHLORIDE 0.9% FLUSH 10 ML FLUSH IV FLUSH SCH ×2 (07:59→19:55)
[2017-11-14] MEDS: MAGNESIUM HYDROXIDE SUSP 30 ML CUP PO SCH ×2 (07:59→19:54)
[2017-11-14] MEDS: NICOTINE 14 MG/24 HR PATCH T-DERMAL SCH (08:00)
[2017-11-14] MEDS: GABAPENTIN 300 MG CAP PO SCH ×3 (08:00→17:00)
[2017-11-14] MEDS: DOCUSATE SODIUM 50 MG/SENNA 8.6 MG TAB PO SCH ×2 (08:00→19:54)
[2017-11-14] MEDS: FAMOTIDINE 20 MG TAB PO SCH ×2 (08:00→19:53)
[2017-11-14] MEDS: LIDOCAINE HCL 5% PATCH T-DERMAL SCH (08:01)
[2017-11-14] MEDS: ENOXAPARIN SODIUM 30 MG/0.3 ML SYRINGE SQ SCH ×2 (10:29→22:05)
--- NOTE | 2017-11-14 17:03 | HHI.PR ---
Subjective Subjective Notes CT chest yesterday shows dense LLL consolidation Low grade temps Denies SOB, on 3L NC Objective Vitals/I&O Vital Signs Date Time Temp Pulse Resp B/P (MAP) Pulse Ox O2 Delivery O2 Flow Rate FiO2 11/14/17 16:00 98.3 104 17 123/67 (85) 86 11/14/17 12:27 Nasal Cannula 3.00 11/13/17 07:00 60 Labs Laboratory Tests Test 11/06/17 16:40 11/06/17 18:00 11/07/17 07:25 11/07/17 19:23 Bedside Hemoglobin 11.9 G/DL Bedside Hematocrit 35.0 % Bedside Sodium 142 MMOL/L Bedside Potassium 3.3 MMOL/L Bedside Chloride 103 MMOL/L Bedside Blood Urea Nitrogen 17 MG/DL Bedside Creatinine 1.2 MG/DL Bedside Glucose 124 MG/DL Nasal Screen MRSA (PCR) MRSA NOT DETECTED Prothrombin Time 12.7 SEC Prothromb Time International Ratio 1.3 RATIO Activated Partial Thromboplast Time 28.3 SEC Total Creatine Kinase 1075 U/L Creatine Kinase MB 13.7 NG/ML Creatine Kinase MB % 1.3 % Test 11/08/17 04:38 11/08/17 05:03 11/09/17 05:23 11/13/17 04:42 Protein Corrected Calcium 8.6 MG/DL Blood Gas Puncture Site ART LINE Blood Gas Patient Temperature 98.6 Blood Gas HCO3 24 mmol/L Blood Gas Base Excess -1.3 mmol/L Blood Gas Oxygen Saturation 96 % Arterial Blood pH 7.33 Arterial Blood Partial Pressure CO2 46 mmHg Arterial Blood Partial Pressure O2 104 mmHg Arterial Blood Oxygen Content 12.8 Vol % Arterial Blood Carboxyhemoglobin 1.3 % Arterial Blood Methemoglobin 0.9 % Blood Gas Hemoglobin 9.3 G/DL Oxygen Delivery Device VENT Blood Gas Ventilator Setting SEE COMMENTS Blood Gas Inspired Oxygen 40 % Platelet Estimate LOW Platelet Morphology Comment NORMAL Hematology Comments White Blood Count 15.0 TH/MM3 Red Blood Count 2.57 MIL/MM3 Hemoglobin 8.1 GM/DL Hematocrit 23.5 % Mean Corpuscular Volume 91.5 FL Mean Corpuscular Hemoglobin 31.5 PG Mean Corpuscular Hemoglobin Concent 34.4 % Red Cell Distribution Width 16.4 % Platelet Count 307 TH/MM3 Mean Platelet Volume 7.4 FL Neutrophils (%) (Auto) 80.2 % Lymphocytes (%) (Auto) 6.2 % Monocytes (%) (Auto) 10.5 % Eosinophils (%) (Auto) 2.5 % Basophils (%) (Auto) 0.6 % Neutrophils # (Auto) 12.0 TH/MM3 Lymphocytes # (Auto) 0.9 TH/MM3 Monocytes # (Auto) 1.6 TH/MM3 Eosinophils # (Auto) 0.4 TH/MM3 Basophils # (Auto) 0.1 TH/MM3 CBC Comment DIFF FINAL Differential Comment Blood Urea Nitrogen 13 MG/DL Creatinine 0.75 MG/DL Random Glucose 112 MG/DL Total Protein 6.6 GM/DL Albumin 2.0 GM/DL Calcium Level 8.3 MG/DL Alkaline Phosphatase 161 U/L Aspartate Amino Transf (AST/SGOT) 37 U/L Alanine Aminotransferase (ALT/SGPT) 25 U/L Total Bilirubin 0.5 MG/DL Sodium Level 131 MEQ/L Potassium Level 4.0 MEQ/L Chloride Level 92 MEQ/L Carbon Dioxide Level 28.9 MEQ/L Anion Gap 10 MEQ/L Estimat Glomerular Filtration Rate 109 ML/MIN Radiology Last Impressions Chest X-Ray 11/13/17 0600 Signed Impressions: Service Date/Time: October 02:54 - CONCLUSION: Increasing consolidation in the lower lateral left lung. Stable faint infiltrates in the right upper lobe. Piter Peters MD Chest CT 11/13/17 0000 Signed Impressions: Service Date/Time: October 19:34 - CONCLUSION: 1. Dense consolidation left lower lobe with air bronchograms. Primary differential diagnosis is pneumonia. 2. Numerous left rib fractures with small left effusion. No significant pneumothorax. 3. Groundglass opacity in the right anomaly in the upper lobe and middle lobe with distal airway disease and mucoid plugging. 4. Mild emphysema. 5. Trace pericardial effusion. Omar Douglas MD Pelvis X-Ray 11/06/17 1636 Signed Impressions: Service Date/Time: October 16:27 - CONCLUSION: 1. No definite fracture identified. The exam is somewhat limited as the upper pelvis is not visualized. Thang Victoria MD Head CT [id number]/06/[id number] Signed Impressions: Service Date/Time: October 16:57 - CONCLUSION: 1. No acute intracranial abnormality is identified. Thang Victoria MD Cervical Spine CT [id number]/[id number] Signed Impressions: Service Date/Time: October 16:57 - CONCLUSION: 1. Moderate degenerative change. No acute findings. Omar Douglas MD Abdomen/Pelvis CT [id number]/[id number] Signed Impressions: Service Date/Time: , November 06, 2017 17:05 - CONCLUSION: 1. Numerous lower left rib fractures with pneumothorax, lung contusion, left hemothorax and dependent consolidation in the lungs. No acute traumatic injury identified within the abdomen and pelvis. Omar Douglas MD Narrative Exam GENERAL: 52 year old adult male OOB in chair no distress noted. SKIN: Warm and dry. HEAD: Atraumatic. Normocephalic. EYES: Pupils equal and round. No scleral icterus. No injection or drainage. ENT: No nasal bleeding or discharge. Mucous membranes pink and moist. NECK: Trachea midline. No JVD. CARDIOVASCULAR: Regular rate and rhythm. RESPIRATORY: No accessory muscle use. Clear and diminished to auscultation. Breath sounds equal bilaterally. LEFT lateral chest tube secured to pleura vac at -20cm suction. No air leak. GASTROINTESTINAL: Abdomen soft, non-tender, nondistended. + BS MUSCULOSKELETAL: Extremities without clubbing, cyanosis, or edema. MAEW, + perfused NEUROLOGICAL: Awake and alert. Normal speech. 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 No LOC. GCS = 15. Needle decompression in the field. INJURIES: LEFT rib fxs (FLAIL) LEFT SALVADOR/PTX LEFT lung contusion ? aspiration PMHx: Former smoker 11/06: L CT placement 11/07 LEFT thoracotomy and partial resection of the left lower lobe, resection of the ribs and drainage of hemothorax with control of bleeding, chest tube placement LEFT rib fxs, LEFT SALVADOR/PTX, LEFT lung contusion,?aspiration 11/06: L CT placement 11/07: LEFT thoracotomy and partial resection of the left lower lobe, resection of the ribs and drainage of hemothorax with control of bleeding, chest tube placement Pain control Bowel regimen- Lactulose x1 today O2 as needed 11/13: CT chest/thorax- dense LLL consolidation LEFT CT with minimal drainage overnight Daily CT dressing changes 11/14: LEFT basal CT removed Keep CT on -20cm suction OOB- PT ordered Lovenox Plan of care d/w patient and family at bedside. Trauma MD agrees with plan. Case management consulted to assist with DC planning. Pedro Grewal Nov 14, 2017 17:03
[2017-11-14] MEDS: REMOVE OLD LIDOCAINE PATCH T-DERMAL SCH (19:54)
[2017-11-15 00:09] VITALS: BP 116/60; PULSE 97; RESP 18; TEMP 99; O2SAT 93
[2017-11-15 04:00] VITALS: BP 120/61; PULSE 94; RESP 18; TEMP 98.9; O2SAT 92
--- NOTE | 2017-11-15 04:46 | RADRPT ---
EXAM DATE/TIME: 11/15/2017 02:20 [facility] COMPARISON: CHEST SINGLE AP, November 13, 2017, 2:54. INDICATIONS : Chest tube removal. MEDICAL HISTORY : None. SURGICAL HISTORY : Left side chest tube. ENCOUNTER: Subsequent ACUITY: 2 weeks PAIN SCORE: 8/10 LOCATION: Left chest FINDINGS: A single AP portable view of the chest was obtained and again demonstrates interval removal of one of the 2 previously noted left-sided chest tubes but no visualized pneumothorax. A single chest tube no w remains with the tip projected over the lung apex. There are multiple left rib fractures again note d. Coarse infiltrate remains in the left lung base. There is mild hazy opacity in the right lung. The heart size is within normal limits. CONCLUSION: 1. Interval removal of one of the 2 left-sided chest tubes with no visualized pneumothorax. 2. Multiple left rib fractures again noted with dense consolidation in the left lung base. This appea rs mildly improved. 3. Mild hazy opacity remains in the right lung. Song Stephens MD on November 15, 2017 at 4:42 Board Certified Radiologist. This report was verified electronically.
[2017-11-15] MEDS: METHOCARBAMOL 500 MG TAB PO SCH ×3 (04:49→22:30)
[2017-11-15 05:11] LABS: AUTOMATED NEUTROPHIL # 11.5 TH/MM3 (1.8-7.7); BASOPHIL # 0.1 TH/MM3 (0-0.2); BASOPHIL % 0.4 % (0.0-2.0); EOSINOPHIL # 0.5 TH/MM3 (0-0.4); EOSINOPHIL % 3.4 % (0.0-4.0); HEMATOCRIT 24.1 % (39.0-51.0); HEMOGLOBIN 8.1 GM/DL (13.0-17.0); LYMPH % 5.6 % (9.0-44.0); LYMPHOCYTE # 0.8 TH/MM3 (1.0-4.8); MEAN CORPUSCULAR HGB CONC 33.7 % (32.0-36.0); MEAN PLATELET VOLUME 7.6 FL (7.0-11.0); MONO % 10.3 % (0.0-8.0); MONOCYTE # 1.5 TH/MM3 (0-0.9); NEUT % 80.3 % (16.0-70.0); PLATELET COUNT 435 TH/MM3 (150-450); RED BLOOD COUNT 2.62 MIL/MM3 (4.50-5.90); RED CELL DISTRIBUTION WIDTH 16.3 % (11.6-17.2); WHITE BLOOD COUNT 14.4 TH/MM3 (4.0-11.0)
[2017-11-15 05:14] LABS: BICARBONATE 29.3 MEQ/L (21.0-32.0); CALCIUM 8.3 MG/DL (8.5-10.1); CREATININE 0.65 MG/DL (0.60-1.30)
[2017-11-15 08:00] VITALS: BP 117/58; PULSE 95; RESP 16; TEMP 98.4; O2SAT 91
[2017-11-15] MEDS: GABAPENTIN 300 MG CAP PO SCH ×3 (08:08→17:15)
[2017-11-15] MEDS: FAMOTIDINE 20 MG TAB PO SCH ×2 (08:08→19:40)
[2017-11-15] MEDS: DOCUSATE SODIUM 50 MG/SENNA 8.6 MG TAB PO SCH ×2 (08:08→19:40)
[2017-11-15] MEDS: MAGNESIUM HYDROXIDE SUSP 30 ML CUP PO SCH ×2 (08:08→19:42)
[2017-11-15] MEDS: NICOTINE 14 MG/24 HR PATCH T-DERMAL SCH (08:09)
[2017-11-15] MEDS: LIDOCAINE HCL 5% PATCH T-DERMAL SCH (08:09)
[2017-11-15] MEDS: SODIUM CHLORIDE 0.9% FLUSH 10 ML FLUSH IV FLUSH SCH ×2 (08:13→19:42)
[2017-11-15] MEDS: ENOXAPARIN SODIUM 30 MG/0.3 ML SYRINGE SQ SCH ×2 (11:22→22:30)
[2017-11-15 12:00] VITALS: BP 119/70; PULSE 92; RESP 17; TEMP 98.6; O2SAT 98
--- NOTE | 2017-11-15 15:25 | HHI.PR ---
Subjective Subjective Notes CXR today shows no PTX Plan for chest tube removal tomorrow if no PTX on water seal Denies SOB, on 3-4 L nasal cannula Objective Vitals/I&O Vital Signs Date Time Temp Pulse Resp B/P (MAP) Pulse Ox O2 Delivery O2 Flow Rate FiO2 11/15/17 12:00 98.6 92 17 119/70 (86) 98 11/14/17 20:10 Nasal Cannula 3.00 11/13/17 07:00 60 Labs Laboratory Tests Test 11/15/17 04:10 White Blood Count 14.4 Red Blood Count 2.62 Hemoglobin 8.1 Hematocrit 24.1 Mean Corpuscular Volume 92.0 Mean Corpuscular Hemoglobin 31.0 Mean Corpuscular Hemoglobin Concent 33.7 Red Cell Distribution Width 16.3 Platelet Count 435 Mean Platelet Volume 7.6 Neutrophils (%) (Auto) 80.3 Lymphocytes (%) (Auto) 5.6 Monocytes (%) (Auto) 10.3 Eosinophils (%) (Auto) 3.4 Basophils (%) (Auto) 0.4 Neutrophils # (Auto) 11.5 Lymphocytes # (Auto) 0.8 Monocytes # (Auto) 1.5 Eosinophils # (Auto) 0.5 Basophils # (Auto) 0.1 CBC Comment DIFF FINAL Differential Comment Blood Urea Nitrogen 16 Creatinine 0.65 Random Glucose 114 Calcium Level 8.3 Sodium Level 131 Potassium Level 3.7 Chloride Level 91 Carbon Dioxide Level 29.3 Anion Gap 11 Estimat Glomerular Filtration Rate 129 Radiology Last Impressions Chest X-Ray 11/13/17 0600 Signed Impressions: Service Date/Time: October 02:54 - CONCLUSION: Increasing consolidation in the lower lateral left lung. Stable faint infiltrates in the right upper lobe. Piter Peters MD Chest CT 11/13/17 0000 Signed Impressions: Service Date/Time: October 19:34 - CONCLUSION: 1. Dense consolidation left lower lobe with air bronchograms. Primary differential diagnosis is pneumonia. 2. Numerous left rib fractures with small left effusion. No significant pneumothorax. 3. Groundglass opacity in the right anomaly in the upper lobe and middle lobe with distal airway disease and mucoid plugging. 4. Mild emphysema. 5. Trace pericardial effusion. Omar Douglas MD Pelvis X-Ray 11/06/[id number] Signed Impressions: Service Date/Time: October 16:27 - CONCLUSION: 1. No definite fracture identified. The exam is somewhat limited as the upper pelvis is not visualized. Thang Victoria MD Head CT [id number]/06/171635 Signed Impressions: Service Date/Time: , November 06, 2017 16:57 - CONCLUSION: 1. No acute intracranial abnormality is identified. Thang Victoria MD Cervical Spine CT 11/06/171635 Signed Impressions: Service Date/Time: October 16:57 - CONCLUSION: 1. Moderate degenerative change. No acute findings. Omar Douglas MD Abdomen/Pelvis CT 11/06/171635 Signed Impressions: Service Date/Time: October 17:05 - CONCLUSION: 1. Numerous lower left rib fractures with pneumothorax, lung contusion, left hemothorax and dependent consolidation in the lungs. No acute traumatic injury identified within the abdomen and pelvis. Omar Douglas MD Narrative Exam GENERAL: 52 year old adult male sitting up in bed in no acute distress. SKIN: Warm and dry. HEAD: Atraumatic. Normocephalic. EYES: Pupils equal and round. No scleral icterus. No injection or drainage. ENT: No nasal bleeding or discharge. Mucous membranes pink and moist. NECK: Trachea midline. No JVD. CARDIOVASCULAR: Regular rate and rhythm. RESPIRATORY: No accessory muscle use. Clear and diminished to auscultation. Breath sounds equal bilaterally. LEFT lateral chest tube secured to pleura vac at -20cm suction. No air leak. GASTROINTESTINAL: Abdomen soft, non-tender, nondistended. + BS MUSCULOSKELETAL: Extremities without cyanosis, or edema. MAEW, + perfused NEUROLOGICAL: Awake and alert. Normal speech. 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 No LOC. GCS = 15. Needle decompression in the field. INJURIES: LEFT rib fxs (FLAIL) LEFT SALVADOR/PTX LEFT lung contusion ? aspiration PMHx: Former smoker 11/06: L CT placement 11/07 LEFT thoracotomy and partial resection of the left lower lobe, resection of the ribs and drainage of hemothorax with control of bleeding, chest tube placement LEFT rib fxs, LEFT SALVADOR/PTX, LEFT lung contusion,?aspiration 11/06: L CT placement 11/07: LEFT thoracotomy and partial resection of the left lower lobe, resection of the ribs and drainage of hemothorax with control of bleeding, chest tube placement Pain control Bowel regimen- + BM x4 O2 as needed Walk test 11/13: CT chest/thorax- dense LLL consolidation LEFT CT with minimal drainage overnight Daily CT dressing changes 11/14: LEFT basal CT removed Place chest tube on waterseal CXR in a.m. to evaluate for chest tube removal OOB- PT ordered Lovenox Plan of care d/w patient at bedside. Trauma MD agrees with plan. Case management consulted to assist with DC planning. Possible DC 1-2 days. Pedro Grewal Nov 15, 2017 15:25
[2017-11-15 16:00] VITALS: BP 135/64; PULSE 99; RESP 16; TEMP 98.8; O2SAT 90
[2017-11-15 20:00] VITALS: BP 127/59; PULSE 107; RESP 20; TEMP 99; O2SAT 95
[2017-11-15] MEDS ORDERED: MAGN30S PO (21:24)
[2017-11-15] MEDS ORDERED: PERI PO (21:24)
[2017-11-15] MEDS ORDERED: OXYGENTANK NAS.CANULA (21:28)
[2017-11-15] MEDS ORDERED: OXYGENDME NAS.CANULA (21:28)
[2017-11-15] MEDS: REMOVE OLD LIDOCAINE PATCH T-DERMAL SCH (22:57)
[2017-11-16 00:21] VITALS: BP 112/55; PULSE 94; RESP 18; TEMP 99.1; O2SAT 97
--- NOTE | 2017-11-16 04:59 | RADRPT ---
EXAM DATE/TIME: 11/16/2017 04:21 [facility] COMPARISON: CHEST SINGLE AP, November 15, 2017, 2:20. INDICATIONS : Pulmonary contusion. MEDICAL HISTORY : None. SURGICAL HISTORY : Left sided chest tube. ENCOUNTER: Subsequent ACUITY: 1 week PAIN SCORE: 8/10 LOCATION: Left cranial FINDINGS: A single AP erect portable view of the chest was obtained and again demonstrates the right-sided ches t tube in place. There is no visualized pneumothorax. Consolidative opacity remains at the left lung base with more hazy opacity in both lungs. The heart size is at the upper limits of normal. Multiple left-sided rib fractures again noted with blunting of the left costophrenic angle. CONCLUSION: 1. No significant change. The left-sided chest tube remains in place with no pneumothorax. 2. Consolidative opacity remains in the left lung base. Song Stephens MD on November 16, 2017 at 4:55 Board Certified Radiologist. This report was verified electronically.
[2017-11-16] MEDS: METHOCARBAMOL 500 MG TAB PO SCH ×3 (05:07→20:58)
[2017-11-16 08:00] VITALS: BP 103/53; PULSE 84; RESP 16; TEMP 98.4; O2SAT 94
[2017-11-16] MEDS: GABAPENTIN 300 MG CAP PO SCH ×3 (08:36→16:41)
[2017-11-16] MEDS: NICOTINE 14 MG/24 HR PATCH T-DERMAL SCH (08:36)
[2017-11-16] MEDS: FAMOTIDINE 20 MG TAB PO SCH ×2 (08:36→19:52)
[2017-11-16] MEDS: DOCUSATE SODIUM 50 MG/SENNA 8.6 MG TAB PO SCH ×2 (08:36→19:52)
[2017-11-16] MEDS: MAGNESIUM HYDROXIDE SUSP 30 ML CUP PO SCH ×2 (08:36→19:51)
[2017-11-16] MEDS: SODIUM CHLORIDE 0.9% FLUSH 10 ML FLUSH IV FLUSH SCH ×2 (08:40→19:52)
[2017-11-16] MEDS: LIDOCAINE HCL 5% PATCH T-DERMAL SCH (08:41)
--- NOTE | 2017-11-16 09:09 | HHI.PR ---
Subjective Subjective Notes PTD: 10 Patient lying in bed. No distress noted. Patient has been ambulating with PT. "Can we discuss things? Do we have a plan for my Oxygen at home? Do we have a plan for my pain management at home?" "I have pain when I cough, and it's really bad." Objective Vitals/I&O Vital Signs Date Time Temp Pulse Resp B/P (MAP) Pulse Ox O2 Delivery O2 Flow Rate FiO2 11/16/17 08:00 98.4 84 16 103/53 (70) 94 11/15/17 19:38 Nasal Cannula 3.00 11/13/17 07:00 60 Radiology Last 48 hours Impressions Chest X-Ray 11/15/17 0600 Signed Impressions: Service Date/Time: Wednesday, November 15, 2017 02:20 - CONCLUSION: 1. Interval removal of one of the 2 left-sided chest tubes with no visualized pneumothorax. 2. Multiple left rib fractures again noted with dense consolidation in the left lung base. This appears mildly improved. 3. Mild hazy opacity remains in the right lung. Song Stephens MD Narrative Exam GENERAL: This is a 52-year-old male lying in bed. No distress noted. SKIN: Warm and dry. HEAD: Atraumatic. Normocephalic. EYES: PERRLA ENT: No nasal bleeding or discharge. Mucous membranes pink and moist. NECK: Trachea midline. No JVD. CARDIOVASCULAR: Regular rate and rhythm. RESPIRATORY: O2 nasal cannula . No accessory muscle use. Lungs are clear to auscultation. Breath sounds equal bilaterally. No distress or dyspnea. Left lateral chest tube in place to Pleur-evac drainage system to water seal. Dressing CDI. No air leak noted. GASTROINTESTINAL: BS + x 4 quads. Abdomen soft, non-tender, nondistended. MUSCULOSKELETAL: Extremities without cyanosis, or edema. + peripheral pulses x 4 extremities. Warm with good capillary refill and sensation. MAEW. NEUROLOGICAL: Awake and alert. Normal speech and pattern. 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 No LOC. GCS 15. Needle decompression in the field. INJURIES: LEFT rib fxs (FLAIL) LEFT SALVADOR/PTX LEFT lung contusion ? aspiration PMHx: Procedures: 11/06: L CT placement 11/07 LEFT thoracotomy and partial resection of the left lower lobe, resection of the ribs and drainage of hemothorax with control of bleeding, chest tube placement 11/14: LEFT basal CT removed 11/16: L CT removed at bedside. Consults: CCM. Case management. Diet: Regular diet. Tolerating po diet. Encourage good po intake with each meal. Pulmonary: Encourage good pulmonary toileting. IS and acapella at bedside and pt encouraged to use. Rationale for use explained to patient, and verbalized understanding. Duonebs. CXR shows LEFT CT with NO PTX. Slight consolidative opacity in left lung base. CT output = 30 ml / 24 hrs. Left lateral chest tube removed at bedside without incident. Vaseline gauze and 4x4 applied and secured with Elastoplast tape. Pt tolerated procedure well. Follow-up labs and chest x-ray in the morning.. PAIN Management: Oxycodone 5-10 mg q4h, Fentanyl patch 50mcg, Morphine 4mg q3h, Robaxin 500 mg q8h. Neurontin 300 TID. Lidoderm patch. Activity: OOB. PT ordered. Encourage out of bed GI prophylaxis: Pepcid 20 mg BID po Bowel regimen: Colace and MOM. LBM: 11/15 DVT prophylaxis: Mechanical VTE with SCDs. Chemical management with Lovenox 30 mg BID SQ. DC Planning: Case management consulted for assistance with final discharge disposition. Plan for discharge tomorrow if chest x-ray stable post chest tube removal, and oxygen can be obtained for home use. Emotional support provided to patient and family at bedside and plan of care discussed. Discussed with RN at bedside. Discussed pt condition and plan of care with collaborating trauma surgeon. Patient is currently being managed on the [facility] floor The trauma team will round each day, and evaluate plan of care on a daily basis. LEFT rib fxs (FLAIL) LEFT SALVADOR/PTX LEFT lung contusion ? aspiration 11/06: L CT placement 11/07 LEFT thoracotomy and partial resection of the left lower lobe, resection of the ribs and drainage of hemothorax with control of bleeding, chest tube placement 11/14: LEFT basal CT removed 11/16: Left chest tube removed at bedside Chest x-ray stable with no PTX Chest tube output equals 30 mL/24 HR Supportive care Oxygen as needed Aggressive pulmonary toileting Pain management PT and OT ordered Encourage out of bed Bowel regimen Lovenox for DVT prophylaxis Problem Qualifiers (1) Pulmonary contusion: Qualified Codes: S27.321A - Contusion of lung, unilateral, initial encounter Radha Norris Nov 16, 2017 09:09
[2017-11-16 12:00] VITALS: BP 118/64; PULSE 92; RESP 16; TEMP 98.9; O2SAT 96
[2017-11-16] MEDS: REMOVE OLD DURAGESIC (FENTANYL) PATCH T-DERMAL SCH (12:00)
[2017-11-16] MEDS: fentaNYL 50 MCG/HR PATCH T-DERMAL SCH (12:00)
[2017-11-16] MEDS: ENOXAPARIN SODIUM 30 MG/0.3 ML SYRINGE SQ SCH ×2 (12:00→23:44)
[2017-11-16] MEDS ORDERED: LIDO1ADH4 T-DERMAL (12:37)
[2017-11-16] MEDS ORDERED: METH500T3 PO (12:37)
[2017-11-16] MEDS ORDERED: NEUR300C PO (12:37)
[2017-11-16] MEDS ORDERED: PERC5TAB12 PO (12:37)
[2017-11-16 16:00] VITALS: BP 132/60; PULSE 107; RESP 16; TEMP 101; O2SAT 90
[2017-11-16] MEDS: ACETAMINOPHEN 325 MG TAB PO PRN (16:44)
[2017-11-16 17:30] VITALS: TEMP 99.8
[2017-11-16 20:00] VITALS: BP 114/58; PULSE 103; RESP 20; TEMP 99.2; O2SAT 94
[2017-11-16] MEDS: REMOVE OLD LIDOCAINE PATCH T-DERMAL SCH (21:00)
[2017-11-17] VITALS (8 sets, daily range): BP systolic 107–121; BP diastolic 62–71; PULSE 101–122; RESP 18–20; TEMP 98.8–101.3; O2SAT 95–97
[2017-11-17] MEDS: ACETAMINOPHEN 325 MG TAB PO PRN ×2 (00:32→15:36)
[2017-11-17 03:47] LABS: AUTOMATED NEUTROPHIL # 20.5 TH/MM3 (1.8-7.7); BASOPHIL # 0.1 TH/MM3 (0-0.2); BASOPHIL % 0.5 % (0.0-2.0); EOSINOPHIL # 0.1 TH/MM3 (0-0.4); EOSINOPHIL % 0.4 % (0.0-4.0); HEMOGLOBIN 7.9 GM/DL (13.0-17.0); LYMPH % 5.3 % (9.0-44.0); LYMPHOCYTE # 1.3 TH/MM3 (1.0-4.8); MEAN CELL VOLUME 90.6 FL (80.0-100.0); MEAN CORPUSCULAR HGB CONC 34.2 % (32.0-36.0); MEAN PLATELET VOLUME 7.2 FL (7.0-11.0); MONO % 8.5 % (0.0-8.0); MONOCYTE # 2.1 TH/MM3 (0-0.9); NEUT % 85.3 % (16.0-70.0); PLATELET COUNT 557 TH/MM3 (150-450); RED BLOOD COUNT 2.54 MIL/MM3 (4.50-5.90); RED CELL DISTRIBUTION WIDTH 16.8 % (11.6-17.2); WHITE BLOOD COUNT 24.1 TH/MM3 (4.0-11.0)
[2017-11-17 04:34] LABS: BICARBONATE 30.9 MEQ/L (21.0-32.0); CALCIUM 8.2 MG/DL (8.5-10.1); CREATININE 0.72 MG/DL (0.60-1.30)
[2017-11-17] MEDS: METHOCARBAMOL 500 MG TAB PO SCH ×3 (04:49→22:10)
--- NOTE | 2017-11-17 06:40 | RADRPT ---
EXAM DATE/TIME: 11/17/2017 05:07 [facility] COMPARISON: CHEST SINGLE AP, November 16, 2017, 4:21. INDICATIONS : Short of breath, pain left chest and ribs MEDICAL HISTORY : multiple rib fractures SURGICAL HISTORY : left lung surgery ENCOUNTER: Subsequent ACUITY: 2 weeks PAIN SCORE: 8/10 LOCATION: Left chest FINDINGS: A single view of the chest demonstrates removal of left-sided chest tube without pneumothorax. Bilate ral patchy densities again seen greater in the right upper lung left lower lobe. Postsurgical changes on the left. Rib fractures greater on the left.. Osseous structures are intact. CONCLUSION: 1. Bilateral patchy opacities. 2. No pneumothorax on the left status post chest tube removal. Bassam Martinez MD on November 17, 2017 at 6:36 Board Certified Radiologist. This report was verified electronically.
[2017-11-17] MEDS ORDERED: VANCOMYCIN INJ 1,000 MG in SODIUM CHLOR 0.9% 250 ML INJ 250 ML IV SCH (08:15)
[2017-11-17] MEDS ORDERED: SODIUM CHLOR 0.9% 1000 ML INJ 1,000 ML IV ONE (08:15)
[2017-11-17] MEDS ORDERED: Vancomycin Consult Pharmacy 1 EA OTHER SCH (08:30)
[2017-11-17] MEDS: DOCUSATE SODIUM 50 MG/SENNA 8.6 MG TAB PO SCH ×2 (08:43→22:09)
[2017-11-17] MEDS: GABAPENTIN 300 MG CAP PO SCH ×3 (08:43→18:02)
[2017-11-17] MEDS: NICOTINE 14 MG/24 HR PATCH T-DERMAL SCH (08:43)
[2017-11-17] MEDS: FAMOTIDINE 20 MG TAB PO SCH ×2 (08:43→22:09)
[2017-11-17] MEDS: LIDOCAINE HCL 5% PATCH T-DERMAL SCH (08:44)
[2017-11-17] MEDS: MAGNESIUM HYDROXIDE SUSP 30 ML CUP PO SCH ×2 (09:00→22:09)
[2017-11-17] MEDS: SODIUM CHLORIDE 0.9% FLUSH 10 ML FLUSH IV FLUSH SCH ×2 (09:00→22:11)
[2017-11-17] MEDS: PIPERACIL-TAZO 3.375 GM PREMIX 50 ML IV SCH ×4 (10:41→22:12)
[2017-11-17] MEDS: ENOXAPARIN SODIUM 30 MG/0.3 ML SYRINGE SQ SCH ×2 (11:21→22:11)
[2017-11-17] MEDS: VANCOMYCIN INJ 1,250 MG in SODIUM CHLOR 0.9% 250 ML INJ 250 ML IV SCH ×2 (12:57→22:12)
--- NOTE | 2017-11-17 13:44 | HHI.PR ---
Subjective Subjective Notes PTD: 10 Patient sitting on the side of the bed. No distress noted. Patient states he is not eating very well because he has "new teeth I am working with." Objective Vitals/I&O Vital Signs Date Time Temp Pulse Resp B/P (MAP) Pulse Ox O2 Delivery O2 Flow Rate FiO2 11/17/17 13:24 6.00 11/17/17 12:00 99.4 108 18 121/71 (88) 97 11/17/17 08:44 Nasal Cannula 11/13/17 07:00 60 Labs Laboratory Tests Test 11/17/17 03:37 White Blood Count 24.1 Red Blood Count 2.54 Hemoglobin 7.9 Hematocrit 23.0 Mean Corpuscular Volume 90.6 Mean Corpuscular Hemoglobin 31.0 Mean Corpuscular Hemoglobin Concent 34.2 Red Cell Distribution Width 16.8 Platelet Count 557 Mean Platelet Volume 7.2 Neutrophils (%) (Auto) 85.3 Lymphocytes (%) (Auto) 5.3 Monocytes (%) (Auto) 8.5 Eosinophils (%) (Auto) 0.4 Basophils (%) (Auto) 0.5 Neutrophils # (Auto) 20.5 Lymphocytes # (Auto) 1.3 Monocytes # (Auto) 2.1 Eosinophils # (Auto) 0.1 Basophils # (Auto) 0.1 CBC Comment DIFF FINAL Differential Comment Blood Urea Nitrogen 13 Creatinine 0.72 Random Glucose 119 Calcium Level 8.2 Sodium Level 130 Potassium Level 4.0 Chloride Level 92 Carbon Dioxide Level 30.9 Anion Gap 7 Estimat Glomerular Filtration Rate 115 Date/Time Source Procedure Growth Status 11/17/17 09:55 Blood Peripheral Aerobic Blood Culture Pending Received 11/17/17 09:55 Blood Peripheral Anaerobic Blood Culture Pending Received 11/17/17 10:31 Sputum Endotracheal Gram Stain Pending Received 11/17/17 10:31 Sputum Endotracheal Sputum Culture Pending Received 11/17/17 09:33 Urine Catheterized Urine Urine Culture Pending Received Radiology Last 48 hours Impressions Chest X-Ray 11/17/17 0600 Signed Impressions: Service Date/Time: Friday, November 17, 2017 05:07 - CONCLUSION: 1. Bilateral patchy opacities. 2. No pneumothorax on the left status post chest tube removal. Bassam Martinez MD Chest X-Ray 11/16/17 0600 Signed Impressions: Service Date/Time: Thursday, November 16, 2017 04:21 - CONCLUSION: 1. No significant change. The left-sided chest tube remains in place with no pneumothorax. 2. Consolidative opacity remains in the left lung base. Song Stephens MD Narrative Exam GENERAL: This is a 52-year-old male sitting on the side of the bed. No distress noted. SKIN: Warm and dry. HEAD: Atraumatic. Normocephalic. EYES: PERRLA ENT: No nasal bleeding or discharge. Mucous membranes pink and moist. NECK: Trachea midline. No JVD. CARDIOVASCULAR: Regular rate and rhythm. RESPIRATORY: O2 nasal cannula . No accessory muscle use. Lungs are clear to auscultation. Breath sounds equal bilaterally. No distress or dyspnea. GASTROINTESTINAL: BS + x 4 quads. Abdomen soft, non-tender, nondistended. MUSCULOSKELETAL: Extremities without cyanosis, or edema. + peripheral pulses x 4 extremities. Warm with good capillary refill and sensation. MAEW. NEUROLOGICAL: Awake and alert. Normal speech and pattern. A/P Problem List: (1) Trauma ICD Codes: T14.90XA - Injury, unspecified, initial encounter Status: Acute (2) Pulmonary contusion ICD Codes: S27.329A - Contusion of lung, unspecified, initial encounter Status: Acute (3) Pneumothorax on left ICD Codes: J93.9 - Pneumothorax, unspecified Status: Acute Assessment and Plan TLINGIT & HAIDA: This is a 52-year-old male who was unloading a semi-truck in 200 pounds of lumber fell on top of him. No LOC. GCS 15. Needle decompression in the field. INJURIES: LEFT rib fxs (FLAIL) LEFT SALVADOR/PTX LEFT lung contusion ? aspiration PMHx: Procedures: 11/06: L CT placement 11/07 LEFT thoracotomy and partial resection of the left lower lobe, resection of the ribs and drainage of hemothorax with control of bleeding, chest tube placement 11/14: LEFT basal CT removed 11/16: L CT removed at bedside. Consults: [facility]. Case management. T-max = 101.3. WBC = 24.1. Chest x-ray with bilateral patchy opacities. Tobias culture -sputum blood and urine. Begin empiric antibiotics: Vanco and Zosyn. Diet: Regular diet. Tolerating po diet. Encourage good po intake with each meal. Pulmonary: Encourage good pulmonary toileting. IS and acapella at bedside and pt encouraged to use. Rationale for use explained to patient, and verbalized understanding. Duonebs. CXR shows stable post chest tube removal yesterday. No PTX. Follow-up labs and chest x-ray in the morning.. PAIN Management: Oxycodone 5-10 mg q4h, Fentanyl patch 50mcg, Morphine 4mg q3h, Robaxin 500 mg q8h. Neurontin 300 TID. Lidoderm patch. Activity: OOB. PT ordered. Encourage out of bed GI prophylaxis: Pepcid 20 mg BID po Bowel regimen: Colace and MOM. LBM: 11/15 DVT prophylaxis: Mechanical VTE with SCDs. Chemical management with Lovenox 30 mg BID SQ. DC Planning: Case management consulted for assistance with final discharge disposition. Patient will need home oxygen upon discharge. Emotional support provided to patient at bedside and plan of care discussed. Discussed with RN at bedside. Discussed pt condition and plan of care with collaborating trauma surgeon. Patient is currently being managed on the [facility] floor The trauma team will round each day, and evaluate plan of care on a daily basis. LEFT rib fxs (FLAIL) LEFT SALVADOR/PTX LEFT lung contusion ? aspiration 11/06: L CT placement 11/07 LEFT thoracotomy and partial resection of the left lower lobe, resection of the ribs and drainage of hemothorax with control of bleeding, chest tube placement 11/14: LEFT basal CT removed 11/16: Left chest tube removed at bedside Chest x-ray stable with no PTX Chest tube output equals 30 mL/24 HR Supportive care Oxygen as needed Aggressive pulmonary toileting Pain management PT and OT ordered Encourage out of bed Bowel regimen Lovenox for DVT prophylaxis T-max = 101.3. WBC = 24.1. Chest x-ray with bilateral patchy opacities. Tobias culture -sputum blood and urine. Begin empiric antibiotics: Vanco and Zosyn. Problem Qualifiers (1) Pulmonary contusion: Qualified Codes: S27.321A - Contusion of lung, unilateral, initial encounter Radha Norris Nov 17, 2017 13:44
[2017-11-17] MEDS: REMOVE OLD LIDOCAINE PATCH T-DERMAL SCH (21:00)
[2017-11-18] VITALS (8 sets, daily range): BP systolic 103–123; BP diastolic 59–68; PULSE 97–110; RESP 16–22; TEMP 98–100.4; O2SAT 95–99
[2017-11-18] MEDS: METHOCARBAMOL 500 MG TAB PO SCH ×3 (04:06→22:12)
[2017-11-18 05:29] LABS: AUTOMATED NEUTROPHIL # 15.2 TH/MM3 (1.8-7.7); BASOPHIL # 0.3 TH/MM3 (0-0.2); BASOPHIL % 1.4 % (0.0-2.0); EOSINOPHIL # 0.3 TH/MM3 (0-0.4); EOSINOPHIL % 1.8 % (0.0-4.0); HEMATOCRIT 23.3 % (39.0-51.0); HEMOGLOBIN 7.8 GM/DL (13.0-17.0); LYMPH % 9.1 % (9.0-44.0); LYMPHOCYTE # 1.8 TH/MM3 (1.0-4.8); MEAN CELL VOLUME 91.5 FL (80.0-100.0); MEAN CORPUSCULAR HEMOGLOBIN 30.9 PG (27.0-34.0); MEAN CORPUSCULAR HGB CONC 33.7 % (32.0-36.0); MEAN PLATELET VOLUME 7.8 FL (7.0-11.0); MONO % 11.5 % (0.0-8.0); MONOCYTE # 2.3 TH/MM3 (0-0.9); NEUT % 76.2 % (16.0-70.0); PLATELET COUNT 659 TH/MM3 (150-450); RED BLOOD COUNT 2.54 MIL/MM3 (4.50-5.90); RED CELL DISTRIBUTION WIDTH 16.9 % (11.6-17.2)
[2017-11-18 05:51] LABS: ALBUMIN 1.9 GM/DL (3.4-5.0); ALT (GPT) 50 U/L (12-78); BICARBONATE 30.9 MEQ/L (21.0-32.0); BLOOD UREA NITROGEN 13 MG/DL (7-18); CALCIUM 8.4 MG/DL (8.5-10.1); CHLORIDE 94 MEQ/L (98-107); CREATININE 0.71 MG/DL (0.60-1.30); GLOMERULAR FILTRATION RATE 117 ML/MIN (>89); GLUCOSE,RANDOM 99 MG/DL (74-106); SODIUM (NA) 133 MEQ/L (136-145)
[2017-11-18 05:53] LABS: ALKALINE PHOSPHATASE 169 U/L (45-117); AST (GOT) 36 U/L (15-37); TOTAL BILIRUBIN ADULT 0.4 MG/DL (0.2-1.0); TOTAL PROTEIN 7.1 GM/DL (6.4-8.2)
--- NOTE | 2017-11-18 06:44 | RADRPT ---
EXAM DATE/TIME: 11/18/2017 05:53 [facility] COMPARISON: CHEST SINGLE AP, November 17, 2017, 5:07. INDICATIONS : Pain left chest and ribs, no shortness of breath today MEDICAL HISTORY : multiple left rib fractures SURGICAL HISTORY : left lung surgery ENCOUNTER: Subsequent ACUITY: 2 weeks PAIN SCORE: 5/10 LOCATION: Left chest FINDINGS: A single view of the chest demonstrates persistent left basilar density. Slightly improving right natty g density. Surgical jung along the left chest. Multiple displaced left-sided rib fractures. Heart normal in size. CONCLUSION: Slight improvement of right lung density. Persistent left basilar density Bassam Martinez MD on November 18, 2017 at 6:41 Board Certified Radiologist. This report was verified electronically.
[2017-11-18] MEDS: PIPERACIL-TAZO 3.375 GM PREMIX 50 ML IV SCH ×3 (08:35→22:12)
[2017-11-18] MEDS: GABAPENTIN 300 MG CAP PO SCH ×3 (08:36→17:18)
[2017-11-18] MEDS: FAMOTIDINE 20 MG TAB PO SCH ×2 (08:36→22:12)
[2017-11-18] MEDS: NICOTINE 14 MG/24 HR PATCH T-DERMAL SCH (08:36)
[2017-11-18] MEDS: LIDOCAINE HCL 5% PATCH T-DERMAL SCH (08:36)
[2017-11-18] MEDS: SODIUM CHLORIDE 0.9% FLUSH 10 ML FLUSH IV FLUSH SCH ×2 (08:37→22:13)
[2017-11-18] MEDS: DOCUSATE SODIUM 50 MG/SENNA 8.6 MG TAB PO SCH ×2 (08:38→22:12)
[2017-11-18] MEDS: MAGNESIUM HYDROXIDE SUSP 30 ML CUP PO SCH ×2 (08:38→21:00)
[2017-11-18] MEDS: VANCOMYCIN INJ 1,250 MG in SODIUM CHLOR 0.9% 250 ML INJ 250 ML IV SCH ×2 (09:22→22:12)
[2017-11-18] MEDS: ENOXAPARIN SODIUM 30 MG/0.3 ML SYRINGE SQ SCH ×2 (09:25→22:13)
--- NOTE | 2017-11-18 13:46 | HHI.PR ---
Subjective Subjective Notes PTD: 11 Patient observed walking in the hallways. No distress noted. Patient states "I am all right - fair to middling." Wonder the plan for how much longer he will be in the hospital. Remarks Patient seen and examined the nurse practitioner, he continues to improve pain is controlled continue pulmonary toilet discharge plan Objective Vitals/I&O Vital Signs Date Time Temp Pulse Resp B/P (MAP) Pulse Ox O2 Delivery O2 Flow Rate FiO2 11/18/17 12:00 98.0 98 19 115/67 (83) 99 11/18/17 09:15 Nasal Cannula 4.00 Labs Laboratory Tests Test 11/18/17 04:00 White Blood Count 20.0 Red Blood Count 2.54 Hemoglobin 7.8 Hematocrit 23.3 Mean Corpuscular Volume 91.5 Mean Corpuscular Hemoglobin 30.9 Mean Corpuscular Hemoglobin Concent 33.7 Red Cell Distribution Width 16.9 Platelet Count 659 Mean Platelet Volume 7.8 Neutrophils (%) (Auto) 76.2 Lymphocytes (%) (Auto) 9.1 Monocytes (%) (Auto) 11.5 Eosinophils (%) (Auto) 1.8 Basophils (%) (Auto) 1.4 Neutrophils # (Auto) 15.2 Lymphocytes # (Auto) 1.8 Monocytes # (Auto) 2.3 Eosinophils # (Auto) 0.3 Basophils # (Auto) 0.3 CBC Comment AUTO DIFF Differential Comment AUTO DIFF CONFIRMED Platelet Estimate HIGH Platelet Morphology Comment NORMAL Blood Urea Nitrogen 13 Creatinine 0.71 Random Glucose 99 Total Protein 7.1 Albumin 1.9 Calcium Level 8.4 Alkaline Phosphatase 169 Aspartate Amino Transf (AST/SGOT) 36 Alanine Aminotransferase (ALT/SGPT) 50 Total Bilirubin 0.4 Sodium Level 133 Potassium Level 4.0 Chloride Level 94 Carbon Dioxide Level 30.9 Anion Gap 8 Estimat Glomerular Filtration Rate 117 Date/Time Source Procedure Growth Status 11/17/17 09:55 Blood Peripheral Aerobic Blood Culture - Preliminary NO GROWTH IN 1 DAY Resulted 11/17/17 09:55 Blood Peripheral Anaerobic Blood Culture - Preliminary NO GROWTH IN 1 DAY Resulted 11/17/17 10:31 Sputum Endotracheal Gram Stain - Final Resulted 11/17/17 10:31 Sputum Endotracheal Sputum Culture Pending Resulted 11/17/17 09:33 Urine Catheterized Urine Urine Culture - Preliminary NO GROWTH IN 24 HOURS. Resulted Radiology Last 48 hours Impressions Chest X-Ray 11/18/17 0600 Signed Impressions: Service Date/Time: Saturday, November 18, 2017 05:53 - CONCLUSION: Slight improvement of right lung density. Persistent left basilar density Bassam Martinez MD Chest X-Ray 11/17/17 06 Signed Impressions: Service Date/Time: Friday, November 17, 2017 05:07 - CONCLUSION: 1. Bilateral patchy opacities. 2. No pneumothorax on the left status post chest tube removal. Bassam Martinez MD Narrative Exam GENERAL: This is a 52-year-old male who just return ed for walking in the hallway and is now sitting on the side of the bed. No distress noted. SKIN: Warm and dry. HEAD: Atraumatic. Normocephalic. EYES: PERRLA ENT: No nasal bleeding or discharge. Mucous membranes pink and moist. NECK: Trachea midline. No JVD. CARDIOVASCULAR: Regular rate and rhythm. RESPIRATORY: O2 nasal cannula . No accessory muscle use. Lungs are clear to auscultation. Breath sounds equal bilaterally. No distress or dyspnea. GASTROINTESTINAL: BS + x 4 quads. Abdomen soft, non-tender, nondistended. MUSCULOSKELETAL: Extremities without cyanosis, or edema. + peripheral pulses x 4 extremities. Warm with good capillary refill and sensation. MAEW. NEUROLOGICAL: Awake and alert. Normal speech and pattern. 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 No LOC. GCS 15. Needle decompression in the field. INJURIES: LEFT rib fxs (FLAIL) LEFT SALVADOR/PTX LEFT lung contusion ? aspiration PMHx: Procedures: 11/06: L CT placement 11/07 LEFT thoracotomy and partial resection of the left lower lobe, resection of the ribs and drainage of hemothorax with control of bleeding, chest tube placement 11/14: LEFT basal CT removed 11/16: L CT removed at bedside. Consults: [facility]. Case management. T-max = 100.0. WBC = 20. Chest x-ray with bilateral patchy opacities, however improving. Tobias culture -sputum blood and urine - pending. Empiric antibiotics: Vanco and Zosyn. Diet: Regular diet. Tolerating po diet. Encourage good po intake with each meal. Pulmonary: Encourage good pulmonary toileting. IS and acapella at bedside and pt encouraged to use. Rationale for use explained to patient, and verbalized understanding. Duonebs. Follow-up labs in the morning. PAIN Management: Oxycodone 5-10 mg q4h, Fentanyl patch 50mcg, Morphine 4mg q3h, Robaxin 500 mg q8h. Neurontin 300 TID. Lidoderm patch. Activity: OOB. PT ordered. Encourage out of bed GI prophylaxis: Pepcid 20 mg BID po Bowel regimen: Colace and MOM. LBM: 11/15 DVT prophylaxis: Mechanical VTE with SCDs. Chemical management with Lovenox 30 mg BID SQ. DC Planning: Case management consulted for assistance with final discharge disposition. Patient will need home oxygen upon discharge. Emotional support provided to patient at bedside and plan of care discussed. Discussed with RN at bedside. Discussed pt condition and plan of care with collaborating trauma surgeon. Patient is currently being managed on the [facility] floor The trauma team will round each day, and evaluate plan of care on a daily basis. LEFT rib fxs (FLAIL) LEFT SALVADOR/PTX LEFT lung contusion ? aspiration 11/06: L CT placement 11/07 LEFT thoracotomy and partial resection of the left lower lobe, resection of the ribs and drainage of hemothorax with control of bleeding, chest tube placement 11/14: LEFT basal CT removed 11/16: Left chest tube removed at bedside Supportive care Oxygen as needed Aggressive pulmonary toileting Pain management PT and OT ordered Encourage out of bed Bowel regimen Lovenox for DVT prophylaxis T-max = 100.0 WBC = 20.0 Chest x-ray with bilateral patchy opacities. IV abx: Vanco. Zosyn 11/17: Sputum - 11/17: Blood - 11/17: Urine - NEG Consider CT chest if leukocytosis continues Problem Qualifiers (1) Pulmonary contusion: Qualified Codes: S27.321A - Contusion of lung, unilateral, initial encounter Radha Norris Nov 18, 2017 13:46 Shaylee Argueta MD Nov 22, 2017 15:28
[2017-11-18] MEDS: ACETAMINOPHEN 325 MG TAB PO PRN (16:43)
[2017-11-18] MEDS: REMOVE OLD LIDOCAINE PATCH T-DERMAL SCH (21:00)
[2017-11-18] MEDS ORDERED: PHARMACY ORDERED LAB ONE (21:45)
[2017-11-19] VITALS (7 sets, daily range): BP systolic 102–122; BP diastolic 51–61; PULSE 89–101; RESP 16–20; TEMP 98.5–99.6; O2SAT 91–99
[2017-11-19] MEDS: METHOCARBAMOL 500 MG TAB PO SCH ×3 (04:18→22:31)
[2017-11-19] MEDS: PIPERACIL-TAZO 3.375 GM PREMIX 50 ML IV SCH ×4 (04:19→22:32)
[2017-11-19] MEDS: VANCOMYCIN INJ 1,250 MG in SODIUM CHLOR 0.9% 250 ML INJ 250 ML IV SCH ×3 (04:27→22:35)
[2017-11-19 06:46] LABS: AUTOMATED NEUTROPHIL # 9.7 TH/MM3 (1.8-7.7); BASOPHIL % 0.3 % (0.0-2.0); EOSINOPHIL # 0.3 TH/MM3 (0-0.4); EOSINOPHIL % 2.4 % (0.0-4.0); HEMATOCRIT 22.3 % (39.0-51.0); HEMOGLOBIN 7.5 GM/DL (13.0-17.0); LYMPH % 10.3 % (9.0-44.0); LYMPHOCYTE # 1.3 TH/MM3 (1.0-4.8); MEAN CELL VOLUME 92.5 FL (80.0-100.0); MEAN CORPUSCULAR HGB CONC 33.5 % (32.0-36.0); MEAN PLATELET VOLUME 7.8 FL (7.0-11.0); MONO % 10.9 % (0.0-8.0); MONOCYTE # 1.4 TH/MM3 (0-0.9); NEUT % 76.1 % (16.0-70.0); PLATELET COUNT 678 TH/MM3 (150-450); RED BLOOD COUNT 2.41 MIL/MM3 (4.50-5.90); RED CELL DISTRIBUTION WIDTH 16.5 % (11.6-17.2); WHITE BLOOD COUNT 12.8 TH/MM3 (4.0-11.0)
[2017-11-19] MEDS ORDERED: BISACODYL 10 MG SUPP RECTAL ONE (08:30)
[2017-11-19] MEDS ORDERED: BISACODYL EC 5 MG TABEC PO ONE (08:30)
[2017-11-19] MEDS: FAMOTIDINE 20 MG TAB PO SCH ×2 (08:37→22:31)
[2017-11-19] MEDS: DOCUSATE SODIUM 50 MG/SENNA 8.6 MG TAB PO SCH ×2 (08:37→22:31)
[2017-11-19] MEDS: NICOTINE 14 MG/24 HR PATCH T-DERMAL SCH (08:37)
[2017-11-19] MEDS: GABAPENTIN 300 MG CAP PO SCH ×3 (08:37→17:25)
[2017-11-19] MEDS: SODIUM CHLORIDE 0.9% FLUSH 10 ML FLUSH IV FLUSH SCH ×2 (08:38→22:45)
[2017-11-19] MEDS: MAGNESIUM HYDROXIDE SUSP 30 ML CUP PO SCH ×2 (08:38→21:00)
[2017-11-19] MEDS: LIDOCAINE HCL 5% PATCH T-DERMAL SCH (08:38)
[2017-11-19] MEDS: fentaNYL 50 MCG/HR PATCH T-DERMAL SCH (12:32)
[2017-11-19] MEDS: REMOVE OLD DURAGESIC (FENTANYL) PATCH T-DERMAL SCH (12:32)
[2017-11-19] MEDS: ENOXAPARIN SODIUM 30 MG/0.3 ML SYRINGE SQ SCH ×2 (12:32→22:34)
[2017-11-19] MEDS ORDERED: LEVO500T8 PO (13:17)
[2017-11-19] MEDS: REMOVE OLD LIDOCAINE PATCH T-DERMAL SCH (21:00)
[2017-11-20] VITALS: BP 119/64; PULSE 104; RESP 18; TEMP 98.3; O2SAT 93
[2017-11-20] MEDS: PIPERACIL-TAZO 3.375 GM PREMIX 50 ML IV SCH (02:33)
[2017-11-20] MEDS: VANCOMYCIN INJ 1,250 MG in SODIUM CHLOR 0.9% 250 ML INJ 250 ML IV SCH (05:13)
[2017-11-20] MEDS: METHOCARBAMOL 500 MG TAB PO SCH (05:14)
[2017-11-20] MEDS ORDERED: PHARMACY ORDERED LAB ONE (05:45)
[2017-11-20 08:00] VITALS: BP 107/62; PULSE 94; RESP 18; TEMP 98.1; O2SAT 94
[2017-11-20] MEDS: SODIUM CHLORIDE 0.9% FLUSH 10 ML FLUSH IV FLUSH SCH (09:00)
[2017-11-20] MEDS: MAGNESIUM HYDROXIDE SUSP 30 ML CUP PO SCH (09:00)
[2017-11-20] MEDS: DOCUSATE SODIUM 50 MG/SENNA 8.6 MG TAB PO SCH (09:16)
[2017-11-20] MEDS: GABAPENTIN 300 MG CAP PO SCH (09:16)
[2017-11-20] MEDS: FAMOTIDINE 20 MG TAB PO SCH (09:16)
[2017-11-20] MEDS: LIDOCAINE HCL 5% PATCH T-DERMAL SCH (09:43)
[2017-11-20] MEDS: NICOTINE 14 MG/24 HR PATCH T-DERMAL SCH (09:44)
== END 2017-11-20 10:06 | disposition home or self-care (01) | DRG 163 ==
LOC: NEPI 16:35 → EDBD 16:48 → NEDA 16:48 → N03B 17:18 → NEDA 17:18 → UNDODISIN 11-13 15:30 → N07A 11-13 15:34 → N03B 11-13 15:34 → N07A 11-19 23:38
PROVIDERS: ADMIT Surgery; ATTEND Surgery
PROC: 0W9B30Z Drainage of Left Pleural Cavity with Drainage Device, Percutaneous Approach (ICD-10-PCS; 2017-11-06)
PROC: 0BQG0ZZ Repair Left Upper Lung Lobe, Open Approach (ICD-10-PCS; 2017-11-07)
PROC: 02QR0ZZ Repair Left Pulmonary Artery, Open Approach (ICD-10-PCS; 2017-11-07)
PROC: 0W9B00Z Drainage of Left Pleural Cavity with Drainage Device, Open Approach (ICD-10-PCS; 2017-11-07)
PROC: 0PB20ZZ Excision of 3 or More Ribs, Open Approach (ICD-10-PCS; 2017-11-07)
PROC: 5A1935Z Respiratory Ventilation, Less than 24 Consecutive Hours (ICD-10-PCS; 2017-11-07)
PROC: 30233N1 Transfusion of Nonautologous Red Blood Cells into Peripheral Vein, Percutaneous Approach (ICD-10-PCS; 2017-11-07)
PROC: 0BBJ0ZZ Excision of Left Lower Lung Lobe, Open Approach (ICD-10-PCS; principal; 2017-11-07 07:53)
DX: S27.331A Laceration of lung, unilateral, initial encounter (principal); S22.5XXA Flail chest, initial encounter for closed fracture; R57.1 Hypovolemic shock; J96.90 Respiratory failure, unspecified, unspecified whether with hypoxia or hypercapnia; S27.2XXA Traumatic hemopneumothorax, initial encounter; S27.321A Contusion of lung, unilateral, initial encounter; S20.212A Contusion of left front wall of thorax, initial encounter; I10 Essential (primary) hypertension; W20.8XXA Other cause of strike by thrown, projected or falling object, initial encounter; Y93.89 Activity, other specified; Z23 Encounter for immunization
CPT/HCPCS: 31500; 32551; 36430; 70450; 71045; 71250; 71260; 72125; 72170; 74177; 80048; 80053; 80202; 82550; 82552; 82805; 84155; 85014; 85018; 85025; 85610; 85730; 86850; 86900; 86901; 86920; 87040; 87070; 87077; 87086; 87184; 87185; 87205; 87641; 90471; 90686; 90715; 93005; 94002; 94003; 94150; 94618; 94640; 94664; 94667; 94668; 96361; 96374; 96375; 99291; G0390; J0131; J0690; J1100; J1170; J1580; J1644; J1650; J1885; J1940; J2250; J2270; J2370; J2405; J2543; J2710; J3010; J3370; J7030; J7050; P9016; Q2038; Q9967